=== PATIENT | female | born 1980 | race Caucasian/White ===

== ENCOUNTER 2019-08-29 16:11 | Emergency (ER) | payer OTHER, SELFPAY ==
[2019-08-29 16:16] VITALS: BP 126/83; PULSE 79; RESP 14; TEMP 36.9; O2SAT 98
--- NOTE | 2019-08-29 16:58 | ED.URI ---
HPI - URI/Sore Throat General Chief Complaint: Upper Respiratory Infection Stated Complaint: cough aches Time Seen by Provider: 08/29/19 16:58 Source: patient and RN notes reviewed Mode of arrival: ambulatory Limitations: no limitations History of Present Illness HPI Narrative: 39-year-old female who presents to [facility] care with 6-day duration of low-grade fever, scratchy throat, productive cough of yellow greenish drainage, Patient states that she has some postnasal drainage in the back of her throat, denies any ear pain, no nausea or vomiting or any diarrhea. Patient states some discomfort to her upper chest with cough, is unable to rest due to cough.She states that she did take a flu shot this year. MD elicited complaint: cough, rhinorrhea, nasal congestion and other (scratchy throat) Onset (ago): day(s) (6) Consistency: progressively worsening Severity: moderate Pain scale (0-10): 3 Description of mucous: yellow Able to tolerate fluids by mouth: Yes Exacerbating factors: exertion Relieving factors: nothing Associated symptoms: fever (low grade), rhinorrhea and cough Treatments prior to arrival: other (Mucinex and Nyquil) Related Data Home Medications Medication Instructions Recorded Confirmed cholecalciferol (vitamin D3) 50 2,000 unit PO DAILY 08/09/19 08/29/19 mcg (2,000 unit) capsule Allergies Allergy/AdvReac Type Severity Reaction Status Date / Time clarithromycin Allergy Unknown Vomiting Verified 08/29/19 16:28 Penicillins Allergy Unknown Pruritic Verified 08/29/19 16:28 rash Review of Systems Review of Systems: Narrative: CONSTITUTIONAL: Denies fever, chills, or sweats. EYES: Denies visual changes, redness, or discharge. ENT: positive rhinorrhea, congestion, sore throat, no otalgia. CARDIOVASCULAR: Denies chest pain, palpitations, or edema. RESPIRATORY: positive cough, no dyspnea, SSAO2 98% on room air. GASTROINTESTINAL: Denies abdominal pain, nausea, vomiting, or diarrhea. GENITOURINARY: Denies dysuria or hematuria. SKIN: Denies rash or itching. MUSCULOSKELETAL: Denies back pain, joint pain, or myalgia. NEUROLOGIC: Denies headache, numbness, or weakness. PSYCHIATRIC: Denies anxiety or depression. All systems reviewed & are unremarkable except as noted in HPI and below PMFSH Past Medical History Medical History Anxiety Depression GERD without esophagitis Hx of migraines Vitamin D deficiency Surgical History Surgical History History of cholecystectomy (~2016) History of tubal ligation (~2016) Family History Family History Mother Family history of cardiovascular disease Father Family history of chronic obstructive pulmonary disease Family history of congestive heart failure Other Family history of muscular dystrophy Social History Social History Smoking status: Never smoker Alcohol intake: current Comments At time of signature, agree with nursing past medical, social history. There is no relevant family history pertinent to the presenting complaint Exam Narrative: Exam Narrative: GENERAL: Well-appearing, well-nourished, and in no acute distress. HEAD: Normocephalic, atraumatic. EYES: PERRLA and EOMI. ENT: Nares red,clear rhinorrhea No epistaxis. Mucous membranes moist.TM's normal with good light reflex, throat mildly red no lesions or exudate, no tonsil enlargement NECK: Supple no lymphadenopathy. CHEST: Clear to auscultation. No respiratory distress.cough,SAO2 98% on room air. HEART: Regular rate and rhythm. No murmur heard. Normal peripheral pulses. ABDOMEN: Soft, nontender, nondistended, normal active bowel sounds. EXTREMITIES: Normal range of motion. No edema. SKIN: Warm, dry, no rash. NEURO: No focal deficits. Alert and oriented x3. Course Vital Sign
== END 2019-08-29 17:16 | disposition home or self-care (01) ==
PROVIDERS: Emergency Provider Registered Nurse; PCP Family Medicine
DX: J06.9 Acute upper respiratory infection, unspecified (principal); F41.9 Anxiety disorder, unspecified; F32.9 Major depressive disorder, single episode, unspecified; K21.9 Gastro-esophageal reflux disease without esophagitis; E55.9 Vitamin D deficiency, unspecified
CPT/HCPCS: 99213; G0463

== ENCOUNTER 2021-04-29 10:43 | Outpatient (CLI) | payer OTHER, SELFPAY ==
--- NOTE | ~2021-04-29 | US_ITS ---
EXAMINATION: US pelvic complete w TV DATE: 04/29/2021 11:50 INDICATION: Other specified noninflammatory disorders of the cervix, possible cervical mass TECHNIQUE: Multiple transabdominal and endovaginal sonographic images of the pelvis were obtained. COMPARISON: None. FINDINGS: The uterus measures 11.3 x 3.7 x 5.5 cm. Nabothian cysts are noted in the cervix. No suspic ious sonographically detected cervical mass is identified. The endometrial complex measures 13 mm. Th e right ovary measures 2.7 x 1.7 x 2.6 cm. The left ovary measures 2.8 x 2.7 x 1.8 cm. There is elli l vascular flow in the ovaries. There is a small amount of likely physiologic free fluid in the pelvi s. IMPRESSION: 1. No suspicious sonographically detected cervical mass identified. Reviewed, dictated and finalized at location A.
== END 2021-04-29 10:44 ==
PROVIDERS: Visit Provider Student in an Organized Health Care Education/Training Program
DX: N88.8 Other specified noninflammatory disorders of cervix uteri (principal)
CPT/HCPCS: 76830; 76856

== ENCOUNTER 2021-08-28 01:28 | Day surgery (SDC) | payer OTHER, SELFPAY ==
[2021-08-20 12:29] VITALS: BMI 32.1
--- NOTE | 2021-08-20 12:37 | PC.NURSE ---
Report to the Outpatient Waiting Room, entrance under the green pavilion located off [facility], at time 0800 on date 08/28/21. OR Time: 1000. - You and your visitor will be asked a series of questions to screen for COVID 19 for your protection. - A mask is required within the hospital. One visitor will be allowed to accompany the patient into the hospital. Patients visitor will be instructed to remain with patient at all times or leave the building. We will allow the visitor to come back to the postoperative area when patient is ready. Preoperative COVID Testing Requirements: TO E-MAIL COPY OF CARD No COVID Test needed if: (proof is required; if not received patient will have Rapid Test prior to entry) - Patient has received COVID Vaccine at least 14 days prior to procedure date or - Patient has positive COVID test result within last 90 days of surgery date. COVID Test needed if above criteria is not met Patients may have clear liquids (water, carbonated beverages, clear teas, apple juice) until 3 hours prior to surgery with a maximum of 20 ounces. - No food from midnight until time of surgery Take the following medications with a SIP of water the morning of surgery: BUPROPION Medications to discontinue per physician: VITAMINS/SUPPLEMENTS Date to take last dose: 08/24/21 Please no make-up, nail turkish, hairspray, perfume, deodorant, or body powder the day of surgery. No jewelry (including any body piercings) or valuables the day of surgery, leave them at home. Please take a shower or bath the night before, or the morning of, surgery with an antibacterial soap. Wear comfortable, loose fitting clothing. - Jewelry must be removed prior to entering the operating room. Rings and piercings that are not removed may be cut off. - The hospital will not accept responsibility for valuables. - Please leave all valuables, including medications, at home the day of surgery. If you are going home after surgery, a licensed vending route driver must drive you home. - NO public transportation without another adult. - We recommend that an adult stay with you for 24 hours following discharge. - We also recommend that you do not drive, make important decision, drink alcoholic beverages, or take any drugs that were not prescribed by your health care provider for at least 24 hours after your discharge time. Follow any additional instructions given to you from your surgeon. Telephone instructions given to AZAM CULVER and asked if any additional questions and then verbalized understanding. Patient advised to call surgeon office or pre surgery nurse liaison [phone] if any additional questions.
--- NOTE | 2021-08-27 16:04 | PM.IMHP ---
H&P: HPI History of Present Illness Date/Time: 08/27/21 16:04 Patient is a 41 year old woman with history of worsening menorrhagia and dysmenorrhea. During menstrual cycles, she reports using tampons with pads as back up and has recently started using Depends at night. Menstrual cycles lasts 6 days. She also reports significant cramping. Patient has completed childbearing and is s/p BTL. After discussion regarding management options, patient would like to proceed with an endometrial ablation in an effort to manage symptoms. In general, she reports feeling well today without complaints. Chief Complaint: Menorrhagia Dysmenorrhea Review of Systems Review of Systems: All systems reviewed & are unremarkable except as noted in HPI and below Constitutional: Constitutional: Reports as per HPI, Reports no additional constitutional complaints, Denies chills, Denies fever(s), Denies headache(s) and Denies night sweats Eyes: Eyes: Reports as per HPI and Reports no additional eye complaints ENT: Reports system reviewed and no additional complaints, except as documented, Reports as per HPI, Reports Normal hearing present and Denies headache(s) Cardiovascular: Cardiovascular: Reports as per HPI, Reports no additional cardiovascular complaints, Denies chest pain and Denies dyspnea Respiratory: Respiratory: Reports as per HPI, Reports no additional respiratory complaints, Denies cough and Denies dyspnea Gastrointestinal: Gastrointestinal: Reports as per HPI, Reports no additional gastrointestinal complaints, Denies abdominal pain, Denies change in bowel habits, Denies change in stool character, Denies nausea and Denies vomiting Genitourinary: Genitourinary: Reports no additional female genitourinary complaints, Reports as per HPI, Denies abnormal vaginal bleeding, Denies genital lesions, Denies hot flashes, Denies dyspareunia, Denies pelvic pain, Denies sexual dysfunction, Denies urinary incontinence, Denies vaginal discharge, Denies vaginal dryness and Denies vaginal odor Musculoskeletal: Musculoskeletal: Reports no additional musculoskeletal complaints and Reports as per HPI Integumentary/Breasts: Skin/Breast: Reports system reviewed and no additional complaints, except as docu, Reports as per HPI, Denies breast pain and Denies nipple discharge Neurologic: Reports system reviewed and no additional complaints, except as documented, Reports as per HPI, Reports Normal hearing present and Denies headache(s) Psychiatric: Psychiatric: Reports no additional psychiatric complaints, Reports as per HPI, Denies anxiety and Denies depression Endocrine: Endocrine: Reports no additional endocrine complaints and Reports as per HPI Hematologic/Lymphatic: Hematologic/Lymphatic: Reports no additional hematologic/lymphatic complaints and Reports as per HPI Allergic/Immunologic: Allergic/Immunologic: Reports no additional allergic/immunologic complaints and Reports as per HPI [facility] Past Medical History Medical History Anxiety Depression GERD without esophagitis Migraine Vitamin D deficiency Surgical History Surgical History History of cholecystectomy (~2015) History of tubal ligation (~2015) Family History Family History Mother Family history of cardiovascular disease Father Family history of chronic obstructive pulmonary disease Family history of congestive heart failure Other Family history of muscular dystrophy Social History Social History Smoking status: Never smoker Alcohol intake: current Alcohol use details: RARE Substance use: never Substance use type: does not use Spiritual care concerns: No Meds Home Medications and Allergies Home Medications Medication Instructions Recorded Confirmed Type cholecalciferol
[2021-08-28 08:18] VITALS: BP 118/81; PULSE 86; RESP 18; TEMP 36.2; O2SAT 98
--- NOTE | 2021-08-28 08:36 | P.PNAN_ITS ---
Anes - Initial Pre Proc Eval Procedure: Operation Date: 08/28/21 10:00 Proposed Procedures p Hysteroscopy Dilation and Curettage with Kera Endometrial Ablation with Possible Myosure - Chhaya Tilley MD Date/Time: 08/28/21 08:36 Surgeon: Chhaya Tilley MD Pre Op Diagnosis: Menorrhagia Patient Data Age: 41 Gender: F Height: 1.55 m Weight: 78.7 kg Last Vital Signs Temp 36.2 C L 08/28/21 08:18 Pulse 86 08/28/21 08:18 Resp 18 08/28/21 08:18 BP 118/81 08/28/21 08:18 Pulse Ox 98 08/28/21 08:18 Allergies Allergy/AdvReac Type Severity Reaction Status Date / Time clarithromycin Allergy Unknown Vomiting Verified 08/20/21 12:28 Penicillins Allergy Unknown Pruritic Verified 08/20/21 12:28 rash Home Medications Medication Instructions Recorded Confirmed Type cholecalciferol (vitamin D3) 50 2,000 unit PO DAILY 08/09/19 08/20/21 History mcg (2,000 unit) capsule omeprazole 40 mg capsule,delayed 40 mg PO DAILY #30 cap 03/04/20 08/20/21 Rx release multivitamin with iron 1 tablet PO DAILY 04/22/21 08/20/21 History bupropion HCl 150 mg tablet,12 hr See Rx Instructions .ROUTE BID 07/02/21 08/20/21 Rx sustained-release #180 tablet sumatriptan succinate 100 mg tablet See Rx Instructions PO .COMPLEX #7 07/31/21 08/20/21 Rx tablet Patient hx anesthesia problems: none Family hx anesthesia problems: none Results Review: All pre-operative results and documents have been reviewed as part of the pre-operative evaluation. [facility] Past Medical History Medical History Anxiety Depression GERD without esophagitis Migraine Vitamin D deficiency Surgical History Surgical History History of cholecystectomy (~2015) History of tubal ligation (~2015) Family History Family History Mother Family history of cardiovascular disease Father Family history of chronic obstructive pulmonary disease Family history of congestive heart failure Other Family history of muscular dystrophy Social History Social History Smoking status: Never smoker Alcohol intake: current Alcohol use details: RARE Substance use: never Substance use type: does not use Living arrangements: with family Spiritual care concerns: No Anes - Eval Final PreProcedure Day of Procedure 08/28/21 08:36 Patient weight: obese Heart: regular rate and rhythm Lungs: clear to auscultation Airway: Mallampati scale class II Neurological: alert and oriented Last oral intake: >/= 8 hours ASA classification: III Emergent: no Anesthetic plan: proceed Anesthesia type and monitoring: general GIVS and standard monitoring Results Review: All pre-operative results and documents have been reviewed as part of the pre-operative evaluation. Informed Consent: The patient's anesthetic plan and its attendant risks and benefits were discussed with the patient/family/POA. Questions were solicited and answers provided to the satisfaction of the patient/family/POA.
[2021-08-28] MEDS: LACTATED RINGERS 1,000 ML 30 ML IV CONT (08:41)
[2021-08-28] MEDS: ACETAMINOPHEN 500 MG TABLET 1000 MG PO (08:41)
--- NOTE | 2021-08-28 09:01 | WPDHPUPDATE1 ---
History and Physical Update Update Date/Time: 08/28/21 09:02 History and Physical has been reviewed, including an updated exam of the patient. There are NO changes in the patient's condition. Risks, benefits, and alternatives have been discussed and questions answered. Patient agrees to proceed with procedure.
[2021-08-28 09:56] VITALS: BP 106/62; PULSE 76; RESP 14; O2SAT 92
--- NOTE | 2021-08-28 09:56 | W.PM.PROC2 ---
Procedure Note - Detailed Date of Procedure 08/28/21 Pre-op Diagnosis Menorrhagia Post-op Diagnosis same Procedure Performed Hysteroscopy, dilation and curettage, endometrial ablation with Kera Surgeon Chhaya Tilley MD Anesthesia MAC Findings Large amount of endometrial tissue noted mixed with blood Description of Procedure The patient was taken to the operating room where she self-transferred to the operating room table. She was placed in dorsal supine position. She was repositioned in dorsal lithotomy position with the use of Eric stirrups. Anesthesia was administered and found to be adequate. The patient was prepped and draped in usual sterile fashion. A red rubber catheter was used to drain the bladder of 15 cc of light yellow urine. A bivalve speculum was inserted into the vagina. The cervix was well visualized. The anterior lip of the cervix was grasped with a single-tooth tenaculum. A paracervical block was performed with 1% plain lidocaine. 5 cc of lidocaine was administered on either side for a total of 10 cc. The cervix was serially dilated to accommodate a hysteroscope. The hysteroscope was introduced into the endometrial cavity, however, visualization was extremely limited due to presence of a large amount of endometrial tissue and blood. Tubal ostia were not visualized. The hysteroscope was removed. A medium-size rigid curette was used to perform a curettage. All quadrants of the endometrial cavity were explored. A large amount of tissue was obtained and prepared to be sent to pathology for analysis. The Kera endometrial ablation device was then opened on the sterile field. The appropriate settings were input on the hand-held device and the array was introduced into the endometrial cavity and deployed. The cervical balloon was insufflated. An integrity check was completed and passed by the Kera console. After the integrity check was passed successfully, the ablation procedure started automatically and ran for the preset time of 120 seconds. After completion of the ablation procedure, the array was collapsed and the cervical balloon was desufflated. The device was removed. A moderate amount of bleeding was noted from just inside of the cervical canal. Monsel's was applied. Excellent hemostasis noted. The tenaculum was removed from the anterior lip of the cervix. Moderate bleeding from tenaculum puncture site was noted. This was made hemostatic with a few figure of eight sutures using 3-0 vicryl. Excellent hemostasis was noted. The remainder of the vagina was cleansed and dried and the speculum was removed. The patient was cleansed and dried and taken out of the dorsal lithotomy position. She was awakened from anesthesia without difficulty and transferred to the recovery room in stable condition. The patient tolerated the procedure well. All sponge, lap, and instrument counts were correct at the end of the procedure. Estimated Blood Loss 10 IV Fluids 800 (hysteroscopic fluid: 525cc in/400 cc out) Urine Output 15 Drains No Packing No Pathology yes (endometrial curettings) Complications No immediate complications Condition stable Disposition same day
[2021-08-28 10:25] VITALS: BP 102/64; PULSE 66
[2021-08-28] MEDS: oxyCODONE HCL (*CRX) 5 MG TAB IR PO (10:40)
[2021-08-28 10:55] VITALS: BP 97/65; PULSE 70
[2021-08-28 11:15] VITALS: BP 117/72; PULSE 71
== END 2021-08-28 11:21 | disposition home or self-care (01) ==
PROVIDERS: PCP Family Medicine; Visit Provider Student in an Organized Health Care Education/Training Program
PROC: 0U5B8ZZ Destruction of Endometrium, Via Natural or Artificial Opening Endoscopic (ICD-10-PCS; CPT 58563; principal; 2021-08-28 10:00)
DX: N92.0 Excessive and frequent menstruation with regular cycle (principal); N94.6 Dysmenorrhea, unspecified; N85.01 Benign endometrial hyperplasia; K21.9 Gastro-esophageal reflux disease without esophagitis; E55.9 Vitamin D deficiency, unspecified; F41.8 Other specified anxiety disorders; E66.9 Obesity, unspecified; Z68.32 Body mass index [BMI] 32.0-32.9, adult
CPT/HCPCS: 58563; 88305; A9270; J2250; J2704; J3010; J7030; J7120

== ENCOUNTER 2021-09-21 14:53 | Emergency (ER) | payer OTHER, SELFPAY ==
[2021-09-21 14:58] VITALS: BP 124/82; PULSE 79; RESP 20; TEMP 36.8; O2SAT 99
--- NOTE | 2021-09-21 15:01 | ED.FEMALEGU ---
HPI - Female Genitourinary General Chief complaint: Urogenital-Female Stated complaint: poss uti Time Seen by Provider: 09/21/21 15:00 Source: patient and RN notes reviewed History of Present Illness HPI Narrative: Patient is a 41-year-old female who presents the urgent care with complaints of possible UTI. Patient states that last night she started having burning with urination and urgency. Patient states she is taking Azo last night a morning. Patient denies any fever, nausea, vomiting, travel pain or back pain. Denies of any frequency of UTIs. No other acute complaints. No acute distress noted. Patient aware of the plan of care. Some parts of this dictation were generated by voice recognition software and may contain typographical and/or grammatical inaccuracies. Related Data Home Medications Medication Instructions Recorded Confirmed cholecalciferol (vitamin D3) 50 2,000 unit PO DAILY 08/09/19 08/20/21 mcg (2,000 unit) capsule multivitamin with iron 1 tablet PO DAILY 04/22/21 08/20/21 Allergies Allergy/AdvReac Type Severity Reaction Status Date / Time clarithromycin Allergy Unknown Vomiting Verified 09/21/21 14:54 Penicillins Allergy Unknown Pruritic Verified 09/21/21 14:54 rash Review of Systems Review of Systems: CONSTITUTIONAL: Denies fever, chills, or sweats. EYES: Denies visual changes, redness, or discharge. ENT: Denies rhinorrhea, congestion, sore throat, or otalgia. CARDIOVASCULAR: Denies chest pain, palpitations, or edema. RESPIRATORY: Denies cough or dyspnea. GASTROINTESTINAL: Denies abdominal pain, nausea, vomiting, or diarrhea. GENITOURINARY: Reports of dysuria and urinary frequency SKIN: Denies rash or itching. MUSCULOSKELETAL: Denies back pain, joint pain, or myalgia. NEUROLOGIC: Denies headache, numbness, or weakness. All other systems reviewed are negative, except as documented in HPI. [facility] Past Medical History Medical History (Updated 09/21/21 @ 15:16 by AL Stark) Anxiety Depression GERD without esophagitis Migraine Vitamin D deficiency Surgical History Surgical History History of cholecystectomy (~2015) History of dilation and curettage 08/28/21 History of endometrial ablation 08/28/21 History of hysteroscopy 08/28/21 History of tubal ligation (~2016) Family History Family History Mother Family history of cardiovascular disease Father Family history of chronic obstructive pulmonary disease Family history of congestive heart failure Other Family history of muscular dystrophy Social History Social History Smoking status: Never smoker Alcohol intake: current Alcohol use details: RARE Substance use: never Substance use type: does not use Spiritual care concerns: No Comments At the time of my signature, I reviewed and agree with the nursing past medical, surgical, social, and family history. There is no relevant family history pertinent to the patient complaint. Exam Narrative: GENERAL: This is a well-nourished, well-developed patient, in no apparent distress. HEAD: normocephalic, atraumatic. EYES: PERRL. Sclera clear/white. Vision is grossly intact. EARS: External ears normal NOSE: External nose normal with no obvious nasal discharge, nares without redness, no rhinorrhea. THROAT: Mucous membranes moist NECK: Neck supple CARDIOVASCULAR: Regular rate and rhythm without murmurs, gallops, or rubs. RESPIRATORY: Clear to auscultation. Breath sounds equal bilaterally. No wheezes, rales, or rhonchi. GASTROINTESTINAL: Abdomen soft, non-tender, nondistended. SKIN: warm, intact with no suspicious lesions or rash, good texture and turgor. NEURO: awake, alert, and oriented to person, place and time. There were no obvious focal neurologic abnormalities. EXTREMITIES: No cl
== END 2021-09-21 15:18 | disposition home or self-care (01) ==
PROVIDERS: Emergency Provider Nurse Practitioner Family
DX: R30.0 Dysuria (principal); K21.9 Gastro-esophageal reflux disease without esophagitis; E55.9 Vitamin D deficiency, unspecified; F41.9 Anxiety disorder, unspecified; F32.A Depression, unspecified
CPT/HCPCS: 81003; 87086; 87088; 99213; G0463

== ENCOUNTER 2021-10-20 14:42 | Emergency (ER) | payer OTHER, SELFPAY ==
[2021-10-20 15:02] VITALS: BP 124/88; PULSE 80; RESP 16; TEMP 36.6; O2SAT 100
[2021-10-20 17:19] VITALS: BP 124/78; PULSE 78; RESP 16; O2SAT 98
--- NOTE | 2021-10-20 17:40 | ED.FEMALEGU ---
HPI - Female Genitourinary General Chief complaint: Vaginal Bleeding Stated complaint: vaginal bleeding Time Seen by Provider: 10/20/21 17:34 History of Present Illness HPI Narrative: 41-year-old female presents the emergency room with complaints of heavy vaginal bleeding for 7 days. Patient states in mid August she had a ablation to assist controlling her vaginal bleeding. Patient states since then she has had intermittent light bleeding, until 8 days ago. Patient states that she is passing heavy clots, and is now wearing a depends diaper to help catch the Vach bleeding. Patient is a G5, P4. Patient also complains of some mild lower abdominal cramping, and occasional weakness. Related Data Allergies Allergy/AdvReac Type Severity Reaction Status Date / Time Penicillins Allergy Hives Verified 10/20/21 17:14 Review of Systems Review of Systems: CONSTITUTIONAL: Denies fever, chills, or sweats. EYES: Denies visual changes, redness, or discharge. ENT: Denies rhinorrhea, congestion, sore throat, or otalgia. CARDIOVASCULAR: Denies chest pain, palpitations, or edema. RESPIRATORY: Denies cough or dyspnea. GASTROINTESTINAL: Denies abdominal pain, nausea, vomiting, or diarrhea. GENITOURINARY: Reports vaginal bleeding SKIN: Denies rash or itching. MUSCULOSKELETAL: Denies back pain, joint pain, or myalgia. NEUROLOGIC: Denies headache, numbness, dizziness, or weakness. PSYCHIATRIC: Denies anxiety or depression. Exam Narrative: GENERAL: Well-appearing, well-nourished, and in no acute distress. HEAD: Normocephalic, atraumatic. EYES: PERRLA and EOMI. CHEST: Clear to auscultation. No respiratory distress. No wheezes rales or rhonchi HEART: Regular rate and rhythm. No murmur heard. Normal peripheral pulses. ABDOMEN: Soft, suprapubic tenderness, nondistended, normal active bowel sounds EXTREMITIES: Normal range of motion. No edema. SKIN: Warm, dry, no rash. NEURO: No focal deficits. Alert and oriented x3. PSYCH: Normal mood and affect. Course Course Emergency Course: 1829: Discussed case with VOLCANOLOGY PROFESSOR Dr. Tilley. She states that she will follow-up with patient in clinic on Tuesday. Recommends patient start taking iron supplement. Vital Signs Vital signs: Vital Signs Temperature 36.6 C 10/20/21 15:02 Pulse Rate 80 10/20/21 15:02 Respiratory Rate 16 10/20/21 15:02 Blood Pressure 124/88 10/20/21 15:02 Pulse Oximetry 100 10/20/21 15:02 Temperature 36.6 C 10/20/21 15:02 Pulse Rate 78 10/20/21 17:19 Respiratory Rate 16 10/20/21 17:19 Blood Pressure 124/78 10/20/21 17:19 Pulse Oximetry 98 10/20/21 17:19 MDM - Female Genitourinary MDM Narrative Medical decision making narrative: 41-year-old female presented the emergency room with complaints of heavy vaginal bleeding for 1 week. CBC shows are low hemoglobin at 10.7 and hematocrit of 32.8. Blood pressures have been stable, currently at 124/78. Heart rates have been in the 70s. Patient has remained asymptomatic during her emergency room stay. Medical Records Attestation: I reviewed the patient's medical records. Lab Data Attestation: I reviewed the patient's lab results. Result diagrams: 10/20/21 17:58 10/20/21 17:58 Labs: Lab Results 10/20/21 10/20/21 10/20/21 Range/Units 17:50 17:58 17:58 WBC 8.8 (4.5-10.0) K/mm3 RBC 3.71 L (4.2-5.4) M/mm3 Hgb 10.7 L (12.0-15.0) g/dL Hct 32.8 L (37.0-47.0) % MCV 88.4 (80-100) fl MCH 28.8 (26-34) pg MCHC 32.6 (32-36) g/dl RDW 14.0 (11.5-14.5) % Plt Count 275 (150-375) k/mm3 MPV 10.6 H (7.4-10.4) fl Immature Gran % (Auto) 0.3 (0-0.5) % Neut % (Auto) 65.8 (45.5-73.1) % Lymph % (Auto) 25.0 (18.3-44.2) % Bowman % (Auto) 6.0 (2.6-8.5) % Eos % (Auto) 2.7 (0-4.4) % Baso % (Auto) 0.2 (0.2-1.2) % Lymph # (Auto) 2.21 (0.9-3.2) K/mm3 Bowman # (Auto) 0.5 (0.1-0.6) K/mm3 Eos # (Auto) 0.2 (0-0.3) K/mm3
[2021-10-20 17:56] LABS: Appearance Urine Clear (Clear); Bilirubin Urine Negative (Negative); Blood Urine 2+ (Negative); Color Urine Yellow (Yellow); Glucose Urine UA Negative (Negative); Ketones Urine Negative (Negative); Leukocyte Esterase Ur Negative LEU/UL (Negative); Nitrate Urine Negative (Negative); Protein Urine Negative (Negative); Urobilinogen Urine 0.2 mg/dL (<2.0); pH Urine 6.5 (5.0-9.0)
[2021-10-20 18:04] LABS: Mucus Urine Rare /lpf; RBC Urine 51-75 /hpf (0-2); Squamous Epithelial Cell Urine Rare /hpf (Few); WBC Urine 0-3 /hpf
[2021-10-20 18:05] LABS: Add Urine Microscopic? YES
[2021-10-20 18:05] LABS: Basophils Percent Auto 0.2 % (0.2-1.2); Eosinophils Absolute Auto 0.2 K/mm3 (0-0.3); Eosinophils Percent Auto 2.7 % (0-4.4); Hematocrit 32.8 % (37.0-47.0); Hemoglobin 10.7 g/dL (12.0-15.0); Immature Granulocyte Absolute 0.03 K/mm3 (0.00-0.031); Immature Granulocyte Percent A 0.3 % (0-0.5); Lymphocytes Absolute Auto 2.21 K/mm3 (0.9-3.2); Mean Corpuscular HGB Conc 32.6 g/dl (32-36); Mean Corpuscular Hemoglobin 28.8 pg (26-34); Mean Corpuscular Volume 88.4 fl (80-100); Mean Platelet Volume 10.6 fl (7.4-10.4); Monocytes Absolute Auto 0.5 K/mm3 (0.1-0.6); Neutrophils Absolute Auto 5.8 K/mm3 (1.3-6.7); Neutrophils Percent Auto 65.8 % (45.5-73.1); Platelet Count Result 275 k/mm3 (150-375); Red Blood Count 3.71 M/mm3 (4.2-5.4); White Blood Count 8.8 K/mm3 (4.5-10.0)
[2021-10-20 18:14] LABS: Alanine Aminotransferase 11 U/L (4-35); Albumin Level 3.7 g/dL (3.5-5.1); Alkaline Phosphatase 93 U/L (38-126); Anion Gap 7 mmol/L (8-16); Aspartate Amino Transferase 21 U/L (14-36); Bilirubin,Total 0.2 mg/dL (0.2-1.3); Blood Urea Nitrogen 7 mg/dL (7-17); Calcium 8.4 mg/dL (8.4-10.2); Carbon Dioxide 27 mmol/L (22-30); Chloride 104 mmol/L (98-107); Estimated CRCL calculation 75 ml/min; Estimated Glomerular Filt Rate > 60; Glucose 94 mg/dL (65-110); Potassium 4.1 mmol/L (3.4-5.0); Sodium 138 mmol/L (137-145)
[2021-10-20 18:49] VITALS: BP 123/80; PULSE 75; RESP 18; O2SAT 100
== END 2021-10-20 18:51 | disposition home or self-care (01) ==
PROVIDERS: Emergency Provider Nurse Practitioner Family; PCP Family Medicine
DX: N93.9 Abnormal uterine and vaginal bleeding, unspecified (principal); D64.89 Other specified anemias
CPT/HCPCS: 36415; 80053; 81001; 85025; 99283

== ENCOUNTER 2021-11-18 11:34 | Outpatient (CLI) | payer OTHER, SELFPAY | END 2021-11-18 11:35 | disposition home or self-care (01) | PROVIDERS: PCP Family Medicine; Visit Provider Student in an Organized Health Care Education/Training Program | DX: N93.9 Abnormal uterine and vaginal bleeding, unspecified (principal); Z01.818 Encounter for other preprocedural examination | CPT/HCPCS: 36415; 86850; 86900; 86901 ==

== ENCOUNTER 2021-11-20 13:28 | Observation (INO) | payer OTHER, SELFPAY ==
[2021-11-17 14:58] VITALS: BMI 32.1
--- NOTE | 2021-11-17 15:06 | PC.NURSE ---
Report to the Outpatient Waiting Room, entrance under the green pavilion located off [facility], at time ___06:30____ on date ___[birth year]____. OR Time: ___08:30 . - You and your visitor will be asked a series of questions to screen for COVID 19 for your protection. - Only one visitor is allowed at this time. - The patient visitor is requested to leave or wait in car when not with patient. - A mask is required within the hospital. Patients may have clear liquids (water, carbonated beverages, clear teas, apple juice) until 3 hours prior to surgery with a maximum of 20 ounces. NO DRINKS AFTER 05:30AM 11-20-21 - No food from midnight until time of surgery - Infants may have breast milk until 4 hours before surgery, infant formula 6 hours prior to surgery. - Children will be allowed to drink immediately following surgery. If applicable, please bring a bottle or sippy cup to assist with drinking. Juice, water, soda, and popsicles are readily available. For infants on formula, please bring formula the day of surgery. Pacifiers are allowed. Take the following medications with a SIP of water the morning of surgery: BUPROPRION Medications to discontinue per physician VITAMINS Date to take last yrcp 0-44-17 Please no make-up, nail arabic, hairspray, perfume, deodorant, or body powder the day of surgery. No jewelry (including any body piercings) or valuables the day of surgery, leave them at home. Please take a shower or bath the night before, or the morning of, surgery with an antibacterial soap. Wear comfortable, loose fitting clothing. Children are encouraged to wear pajamas. - Jewelry must be removed prior to entering the operating room. Rings and piercings that are not removed may be cut off. - The hospital will not accept responsibility for valuables. - Please leave all valuables, including medications, at home the day of surgery. If you are going home after surgery, a licensed team otr truck driver must drive you home. - NO public transportation without another adult. - We recommend that an adult stay with you for 24 hours following discharge. - We also recommend that you do not drive, make important decision, drink alcoholic beverages, or take any drugs that were not prescribed by your health care provider for at least 24 hours after your discharge time. Follow any additional instructions given to you from your surgeon. If you or anyone in your household have experienced Covid symptoms in the past week, please notify your surgeon or the nurse liaison at the phone number below for possible testing. Telephone instructions given to ____AZAM CULVER and asked if any additional questions and then verbalized understanding. Patient advised to call surgeon office or pre surgery nurse liaison [phone] if any additional questions.
--- NOTE | 2021-11-19 13:20 | P.PNAN_ITS ---
Anes - Initial Pre Proc Eval Procedure: Operation Date: 11/20/21 08:30 Proposed Procedures p Laparoscopic Assisted Vaginal Hysterectomy with Bilateral Salpingectomy - Chhaya Tilley MD Date/Time: 11/19/21 13:20 Surgeon: Chhaya Tilley MD Pre Op Diagnosis: abn uterine bleeding Patient Data Age: 41 Gender: F Height: 1.55 m Weight: 77 kg Allergies Allergy/AdvReac Type Severity Reaction Status Date / Time clarithromycin Allergy Unknown Vomiting Verified 11/20/21 07:31 Penicillins Allergy Unknown Pruritic Verified 11/20/21 07:31 rash Home Medications Medication Instructions Recorded Confirmed Type cholecalciferol (vitamin D3) 50 2,000 unit PO DAILY 08/09/19 11/20/21 History mcg (2,000 unit) capsule omeprazole 40 mg capsule,delayed 40 mg PO DAILY #30 cap 03/04/20 11/20/21 Rx release multivitamin with iron 1 tablet PO DAILY 04/22/21 11/20/21 History sumatriptan succinate 100 mg PO DAILY PRN 11/17/21 11/20/21 History bupropion HCl 150 mg tablet,12 hr See Rx Instructions .ROUTE BID 11/18/21 11/20/21 Rx sustained-release #180 tablet Patient hx anesthesia problems: none Family hx anesthesia problems: none Results Review: All pre-operative results and documents have been reviewed as part of the pre-operative evaluation. COUNT INCLUDES THE [facility] Past Medical History Medical History Anxiety Depression GERD without esophagitis Idiopathic thrombocytopenic purpura (ITP) Migraine Obesity Vitamin D deficiency Surgical History Surgical History History of cholecystectomy (~2015) History of dilation and curettage 08/28/21 History of endometrial ablation 08/28/21 History of hysteroscopy 08/28/21 History of tubal ligation (~2015) Family History Family History Mother Family history of cardiovascular disease Father Family history of chronic obstructive pulmonary disease Family history of congestive heart failure Other Family history of muscular dystrophy Social History Social History Smoking status: Never smoker Second hand tobacco smoke exposure: Yes Alcohol intake: current Alcohol use details: special occasions Substance use: never Substance use type: does not use Living arrangements: with family Spiritual care concerns: No Anes - Eval Final PreProcedure Day of Procedure 11/19/21 13:20 Patient weight: obese Heart: regular rate and rhythm Lungs: clear to auscultation and normal air movement Airway: Mallampati scale class II Neurological: alert and oriented Last oral intake: >/= 8 hours ASA classification: II Emergent: no Anesthetic plan: proceed Anesthesia type and monitoring: general ETT Results Review: All pre-operative results and documents have been reviewed as part of the pre-operative evaluation. Informed Consent: The patient's anesthetic plan and its attendant risks and benefits were discussed with the patient/family/POA. Questions were solicited and answers provided to the satisfaction of the patient/family/POA.
--- NOTE | 2021-11-19 16:08 | PM.IMHP ---
H&P: HPI History of Present Illness Date/Time: 11/19/21 16:08 Patient is a 41yo woman who presented to gynecology office in 04/2021. During this visit, patient reported recent development of worsening menorrhagia and dysmenorrhea. Symptoms continued to progressively worsen over time and patient underwent an endometrial ablation in 08/2021. After procedure, patient reported intermittent bleeding that became more persistent and heavier over time. She stated that the bleeding seemed to be worse than prior to the ablation procedure. Discussion had with patient regarding management options, inc. hormonal regulation vs. hysterectomy. Patient would like to proceed with hysterectomy for definitive management. Patient also noted to have benign endometrial hyperplasia on pathology results from hysteroscopy/D&C. Although a benign finding, patient was started on progesterone therapy. A hysterectomy would be definitive management for this as well and she would not need to continue progesterone therapy. In general, patient doing well today without complaints. Chief Complaint: Abnormal uterine bleeding Benign endometrial hyperplasia Review of Systems Review of Systems: All systems reviewed & are unremarkable except as noted in HPI and below Constitutional: Constitutional: Reports as per HPI and Reports no additional constitutional complaints Eyes: Eyes: Reports as per HPI and Reports no additional eye complaints ENT: Reports system reviewed and no additional complaints, except as documented and Reports as per HPI Cardiovascular: Cardiovascular: Reports as per HPI and Reports no additional cardiovascular complaints Respiratory: Respiratory: Reports as per HPI and Reports no additional respiratory complaints Gastrointestinal: Gastrointestinal: Reports as per HPI and Reports no additional gastrointestinal complaints Genitourinary: Genitourinary: Reports no additional female genitourinary complaints and Reports as per HPI Musculoskeletal: Musculoskeletal: Reports no additional musculoskeletal complaints and Reports as per HPI Integumentary/Breasts: Skin/Breast: Reports system reviewed and no additional complaints, except as docu and Reports as per HPI Neurologic: Reports system reviewed and no additional complaints, except as documented and Reports as per HPI Psychiatric: Psychiatric: Reports no additional psychiatric complaints and Reports as per HPI Endocrine: Endocrine: Reports no additional endocrine complaints and Reports as per HPI Hematologic/Lymphatic: Hematologic/Lymphatic: Reports no additional hematologic/lymphatic complaints and Reports as per HPI Allergic/Immunologic: Allergic/Immunologic: Reports no additional allergic/immunologic complaints and Reports as per HPI REPLACED BY [facility] Past Medical History Medical History Anxiety Depression GERD without esophagitis Idiopathic thrombocytopenic purpura (ITP) Migraine Obesity Vitamin D deficiency Surgical History Surgical History History of cholecystectomy (~2015) History of dilation and curettage 08/28/21 History of endometrial ablation 08/28/21 History of hysteroscopy 08/28/21 History of tubal ligation (~2015) Family History Family History Mother Family history of cardiovascular disease Father Family history of chronic obstructive pulmonary disease Family history of congestive heart failure Other Family history of muscular dystrophy Social History Social History Smoking status: Never smoker Second hand tobacco smoke exposure: Yes Alcohol intake: current Alcohol use details: special occasions Substance use: never Substance use type: does not use Spiritual care concerns: No Meds Home Medications and Allergies Home Medications Medication Instructions
[2021-11-20] VITALS (10 sets, daily range): BP systolic 101–118; BP diastolic 59–70; PULSE 72–96; RESP 12–18; TEMP 36.2–37.7; O2SAT 88–99
[2021-11-20] MEDS: ACETAMINOPHEN 500 MG TABLET 1000 MG PO (07:40)
[2021-11-20] MEDS: LACTATED RINGERS 1,000 ML 30 ML IV CONT ×2 (07:50→12:32)
[2021-11-20] MEDS: KETOROLAC 15 MG/ML VIAL (*BKC) IV PUSH (07:51)
--- NOTE | 2021-11-20 08:11 | WPDHPUPDATE1 ---
History and Physical Update Update Date/Time: 11/20/21 08:11 History and Physical has been reviewed, including an updated exam of the patient. There are NO changes in the patient's condition. Risks, benefits, and alternatives have been discussed and questions answered. Patient agrees to proceed with procedure.
--- NOTE | 2021-11-20 08:33 | W.PM.PROC2 ---
Procedure Note - Detailed Date of Procedure 11/20/21 Pre-op Diagnosis Abnormal uterine bleeding Post-op Diagnosis Same Procedure Performed Laparoscopic assisted vaginal hysterectomy, bilateral salpingectomy Surgeon Chhaya Tilley MD Frog Shaker Ryan Galdamez Anesthesia General Findings Normal appearing uterus, evidence of prior tubal interruption, multiple paratubal cysts on left side, normal appearing left ovary, remnant of right fallopian tube appears normal, right ovary slightly enlarged with simple cyst noted, otherwise, appears normal; normal appearing liver Description of Procedure The patient was taken to the operating room, where she self-transferred to the operating room table. She was placed in dorsal supine position. General anesthesia was administered without difficulty and found to be adequate. The patient was repositioned in dorsal lithotomy position with the use of Eric stirrups and arms were carefully tucked at her side. She was prepped and draped in usual sterile fashion. A Kearney catheter was inserted using sterile technique. A bivalve speculum was then placed into the vagina. With good visualization of the cervix, the anterior lip of the cervix was grasped with a single-tooth tenaculum. The cervix was then serially dilated to accommodate the insertion of a HUMI uterine manipulator, which was inserted into the uterus for use during the laparoscopic portion of the case. The tenaculum and speculum were removed. Management Developer's gloves were changed. Attention was then turned to the patient's abdomen. A small amount of 0.25% Marcaine was injected in the infraumbilical region. A small infraumbilical incision was made with a scalpel. While tenting the abdominal wall up, a Veress needle was inserted into the abdominal cavity. Intra-abdominal confirmation was made with saline. Carbon dioxide tubing was connected to the Veress needle and insufflation was begun. The abdomen was insufflated to 15 mmHg. Once adequate pneumoperitoneum was achieved, the Veress needle was removed and a 5 mm Optiview trocar was then inserted into the abdominal cavity under direct visualization with the laparoscope. The trocar was removed. The laparoscope was reintroduced into the abdominal cavity through the sheath. For enhanced visualization and completion of the procedure, two additional lateral trocars were placed, one in the left lower quadrant and one in the right lower quadrant. A small amount of 0.25% Marcaine was injected in the right lower quadrant. A skin incision was made with a scalpel and a 5 mm trocar was placed under direct visualization. Similarly, a small amount of 0.25% Marcaine was injected and a skin incision was made in the left lower quadrant. An additional 5 mm trocar was placed under direct visualization. The patient was placed in Trendelenburg position. This allowed good visualization of pelvic structures and a quick survey of the pelvic cavity was completed. The uterus appeared to be grossly normal. Both fallopian tubes showed evidence of prior interruption. Multiple paratubal cysts were visualized on the left side. The left ovary appeared normal. A remnant of the right fallopian tube was visualized and appeared normal. The right ovary, however, appeared slightly enlarged with a simple cyst noted. No gross abnormalities of the visualized portions of the intestines were noted. The anterior and posterior cul-de-sacs also appeared clean without evidence of significant scarring or adhesions. The ureters were well visualized bilaterally. With the use of LigaSure bipolar cautery and transection device, the right fallopian tube remnant was excised and handed off the field. A pinpoint hole was made in the right ovarian cyst to drain and deflate cyst enhancing visualization. Clear cystic fluid was noted. The right round ligament was identified, grasped, cauterized, and transected. Using careful dissection with the LigaSure, the anterior leaf of the broad liga
[2021-11-20] MEDS: ceFAZolin 2 GM/D5W 50 ML 2 GM/50 ML BAG IVPB (09:32)
[2021-11-20] MEDS: BACITRACIN OINTMENT 15 GM TUBE 1 APPLIC TOPICAL (10:28)
[2021-11-20] MEDS: VASOPRESSIN INJ 20 UNITS/ML VIAL XX (10:30)
[2021-11-20] MEDS: BUPIVACAINE HCL 0.25% PF 30 ML VIAL INFILTRATE (12:18)
[2021-11-20] MEDS: fentaNYL CITRATE INJ (*CRX) 100 MCG/2 ML VIAL 25 MCG IV PUSH ×4 (12:56→13:14)
--- NOTE | 2021-11-20 13:35 | PC.NURSE ---
This patient, Yesenia Reyna, was received from PACU per bed on 11/20/21 at 1335. Patient/family oriented to unit policies and routines
[2021-11-20] MEDS: DEXTROSE 5%/0.45% SOD CHL 1,000 ML 125 ML IV CONT (13:58)
[2021-11-20] MEDS: KETOROLAC 30 MG/ML VIAL (*BKC) IV PUSH (13:58)
[2021-11-20] MEDS: MORPHINE SULFATE (*CRX) 2 MG/ML INJ IV PUSH (18:00)
[2021-11-20] MEDS: SIMETHICONE 80 MG TAB.CHEW PO ×2 (19:55→23:58)
[2021-11-20] MEDS: IBUPROFEN 600 MG TABLET PO (19:58)
[2021-11-20] MEDS: HYDROcodone/acetaminophen (*CRX) 10-325 MG TABLET 1 TAB PO ×2 (19:59→23:57)
[2021-11-21] VITALS: BP 104/57; PULSE 87; RESP 18; TEMP 37.1
[2021-11-21 04:30] VITALS: BP 107/51; PULSE 86; RESP 16; TEMP 37.2
[2021-11-21] MEDS: IBUPROFEN 600 MG TABLET PO ×3 (05:03→21:24)
[2021-11-21] MEDS: SIMETHICONE 80 MG TAB.CHEW PO ×5 (05:04→21:24)
[2021-11-21 05:30] LABS: Basophils Percent Auto 0.1 % (0.2-1.2); Eosinophils Percent Auto 0.1 % (0-4.4); Hematocrit 22.4 % (37.0-47.0); Immature Granulocyte Absolute 0.04 K/mm3 (0.00-0.031); Immature Granulocyte Percent A 0.4 % (0-0.5); Lymphocytes Absolute Auto 1.65 K/mm3 (0.9-3.2); Lymphocytes Percent Auto 16.7 % (18.3-44.2); Mean Corpuscular HGB Conc 29.9 g/dl (32-36); Mean Corpuscular Hemoglobin 25.6 pg (26-34); Mean Corpuscular Volume 85.5 fl (80-100); Mean Platelet Volume 11.3 fl (7.4-10.4); Monocytes Absolute Auto 0.8 K/mm3 (0.1-0.6); Monocytes Percent Auto 7.9 % (2.6-8.5); Neutrophils Absolute Auto 7.4 K/mm3 (1.3-6.7); Neutrophils Percent Auto 74.8 % (45.5-73.1); Platelet Count Result 247 k/mm3 (150-375); Red Blood Count 2.62 M/mm3 (4.2-5.4); Red Cell Distribution Width 13.7 % (11.5-14.5); White Blood Count 9.9 K/mm3 (4.5-10.0)
[2021-11-21] MEDS: HYDROcodone/acetaminophen (*CRX) 5-325 MG TABLET 1 TAB PO ×5 (05:33→21:24)
[2021-11-21 06:04] LABS: Hemoglobin 6.7 g/dL (12.0-15.0)
--- NOTE | 2021-11-21 06:04 | PC.NURSE ---
Notified per telephone by lab of critical H/H. Requested that lab confirm result.
[2021-11-21 06:09] LABS: Anisocytosis 1+ (NORMAL); Hypochromasia 1+ (NORMAL); Platelet Estimate Adequate (Adequate)
--- NOTE | 2021-11-21 06:40 | PC.NURSE ---
H/H redrawn to confirm level.
[2021-11-21 06:57] LABS: Hematocrit 22.1 % (37.0-47.0)
[2021-11-21 07:10] LABS: Hemoglobin 6.6 g/dL (12.0-15.0)
--- NOTE | 2021-11-21 07:37 | PM.GYNPNOP ---
LAMINATING MACHINE OFFBEARER - A/P Assessment and plan (1) Status post hysterectomy: Code(s): Z90.710 - Acquired absence of both cervix and uterus Status: Acute Assessment and Plan: POD1. Asymptomatic severe anemia. H/o Chronic anemia. No signs of active bleeding. Adequate urine output. Repeat H/H six hours. Will check CBC in six hours. Monitor for signs/symptoms of hypovolemia. Postoperative Procedures: Procedures Operation Date: 11/20/21 08:30 Actual Procedure Side Surgeon p Laparoscopic Assisted Vaginal Hysterectomy with Bilateral Salpingectomy Bilateral Chhaya Tilley MD Time Spent With Patient Time: Total time spent is greater than 50% in coordination of care (as documented) at patient's floor/unit and/or counseling patient: Time with patient: less than 15 minutes LAMINATING MACHINE OFFBEARER- PN:Subj Post-Op Subjective Date/time seen: 11/21/21 07:37 She denies lightheadedness or dizziness. She has sat up in chair. She has not ambulated. She has tolerated full liquid. She reports adequate pain control. No leg pain. No vag bleeding. Exam Const: General: comfortable and no acute distress Orientation/consciousness: oriented to person, oriented to place and oriented to time Resp: Auscultation: clear to auscultation bilaterally Cardio: Rate: regular rate Rhythm: regular rhythm GI: GI Palp: Yes Soft to palpation Auscultation: normal bowel sounds Other: appropriate tenderness, no rebound or guarding Neuro: General: oriented to person, oriented to place and oriented to time Extrem: General: no calf tenderness Psych: Mental Status: mental status grossly normal LAMINATING MACHINE OFFBEARER - PN: Obj Data Vital Signs Vital Signs: Vital Signs - 24 hr 11/20/21 07:58 11/20/21 12:32 11/20/21 12:45 Temperature 97.1 F L 97.4 F L Pulse Rate 89 79 85 Respiratory Rate 16 12 18 Blood Pressure 106/69 106/59 L 110/65 Pulse Oximetry 98 94 97 11/20/21 13:00 11/20/21 13:10 11/20/21 13:15 Temperature Pulse Rate 86 79 Respiratory Rate 18 12 Blood Pressure 115/65 113/64 Pulse Oximetry 97 88 L 95 11/20/21 13:26 11/20/21 14:00 11/20/21 16:40 Temperature 98.1 F 98.2 F 99.8 F H Pulse Rate 85 72 90 Respiratory Rate 12 18 18 Blood Pressure 118/69 101/62 113/70 Pulse Oximetry 97 99 95 11/20/21 18:50 11/21/21 00:00 11/21/21 04:30 Temperature 98.8 F 98.7 F 98.9 F Pulse Rate 96 87 86 Respiratory Rate 18 18 16 Blood Pressure 103/65 104/57 L 107/51 L Pulse Oximetry Intake/Output Intake/Output: Intake & Output 11/18/21 11/19/21 11/20/21 11/21/21 23:59 23:59 23:59 23:59 Intake Total 3200 1460 Output Total 480 1700 Balance 2720 -240 Meds/Results Medications: Active Medications Generic Name Dose Route Start Last Admin Trade Name Freq PRN Reason Stop Dose Admin Hydrocodone Bitart/Acetaminophen 1 tab 11/20/21 13:28 11/21/21 05:33 Hydrocodone/Acetaminophen (*Crx) 5-325 Mg Tablet PO 1 tab Q3H PRN Administration Pain Rated 5 or Less Hydrocodone Bitart/Acetaminophen 1 tab 11/20/21 13:28 11/20/21 23:57 Hydrocodone/Acetaminophen (*Crx) 10-325 Mg Tablet PO 1 tab Q3H PRN Administration Pain Rated 6 or Greater Acetaminophen 1,000 mg in 100 mls @ 400 mls/hr 11/20/21 16:04 11/20/21 16:57 Ofirmev 1,000 Mg Ivpb IVPB 11/21/21 16:03 Infused Q6H PRN Infusion Pain Rated 4-6 Ibuprofen 600 mg 11/20/21 13:28 11/21/21 05:03 Ibuprofen 600 Mg Tablet PO 600 mg Q6H PRN Administration Cramping Ketorolac Tromethamine 30 mg 11/20/21 13:28 11/20/21 13:58 Ketorolac 30 Mg/Ml Vial (*Bkc) IV PUSH 11/25/21 13:27 30 mg Q6H PRN Administration Pain Rated 4-6 Morphine Sulfate 2 mg 11/20/21 17:51 11/20/21 18:00 Morphine Sulfate (*Crx) 2 Mg/Ml Inj IV PUSH 2 mg Q4H PRN Administration Breakthrough Pain Naloxone HCl 0.1 mg 11/20/21 13:28 Naloxone Hcl 0.4 Mg/Ml Vial IV PUSH Q2M PRN Respiratory rate less than 10 Ondansetron HCl 4 mg 11/20/21 13:28 Ondan
[2021-11-21 08:00] VITALS: BP 120/70; PULSE 83; PULSE 99; RESP 18; TEMP 37.2; O2SAT 100
[2021-11-21 12:00] VITALS: BP 110/64; PULSE 70; RESP 18; TEMP 36.8
[2021-11-21] MEDS: DOCUSATE SODIUM 100 MG CAPSULE PO (13:51)
[2021-11-21] MEDS: FERROUS SULFATE 324 MG TABLET PO (13:51)
[2021-11-21 16:00] VITALS: BP 103/68; PULSE 71; RESP 18; TEMP 37.1; O2SAT 99
[2021-11-21 16:25] LABS: Hematocrit 22.7 % (37.0-47.0)
[2021-11-21 16:32] LABS: Hemoglobin 6.6 g/dL (12.0-15.0)
[2021-11-21 20:00] VITALS: BP 113/72; PULSE 83; RESP 16; TEMP 37; O2SAT 100
[2021-11-22] MEDS: HYDROcodone/acetaminophen (*CRX) 5-325 MG TABLET 1 TAB PO ×3 (01:32→10:37)
[2021-11-22] MEDS: SIMETHICONE 80 MG TAB.CHEW PO ×2 (05:11→10:34)
[2021-11-22] MEDS: IBUPROFEN 600 MG TABLET PO ×2 (05:11→10:38)
--- NOTE | 2021-11-22 08:00 | PC.NURSE ---
PT introductions made and plan of care discussed per post op tinner automatic surgery, pain management, daily care activities and pending discharge to home. PT received such instructions via one to one discussion and demonstrations per shift. PT sole recipient of such instructions and no barriers to learning identified.
[2021-11-22 09:10] VITALS: BP 109/72; PULSE 84; PULSE 94; RESP 18; TEMP 36.7; O2SAT 97
--- NOTE | 2021-11-22 09:19 | PM.GYNPNOP ---
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 She is doing well. Asymptomatic severe anemia. Hemoglobin stable. Discharge home today. Discharge precautions discussed. 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 No lightheadedness or dizziness. She reports positive flatus. Tolerating regular diet. No chest pain or SOB. Subjective: pain is well controlled and patient is tolerating oral intake Review of Systems Review of Systems: All systems reviewed & are unremarkable except as noted in HPI and below Cardiovascular: Cardiovascular: Reports no additional cardiovascular complaints Respiratory: Respiratory: Reports no additional respiratory complaints Gastrointestinal: Gastrointestinal: Reports belching, Denies nausea and Denies vomiting Genitourinary: Genitourinary: Reports no additional female genitourinary complaints Musculoskeletal: Musculoskeletal: Reports no additional musculoskeletal complaints Exam Const: General: comfortable and no acute distress Orientation/consciousness: oriented to person, oriented to place and oriented to time Resp: Effort & Inspection: normal respiratory effort GI: Inspection: normal to inspection GI Palp: Yes Soft to palpation Other: appropriate mild tenderness by incisions Neuro: General: oriented to person, oriented to place and oriented to time Extrem: General: no calf tenderness Psych: Mental Status: mental status grossly normal MA[employer]GER [employer] - PN: Obj Data Vital Signs Vital Signs: Vital Signs - 24 hr 11/21/21 12:00 11/21/21 16:00 11/21/21 20:00 Temperature 98.3 F 98.8 F 98.6 F Pulse Rate 70 71 83 Respiratory Rate 18 18 16 Blood Pressure 110/64 103/68 113/72 Pulse Oximetry 99 100 Intake/Output Intake/Output: Intake & Output 11/19/21 11/20/21 11/21/21 11/22/21 23:59 23:59 23:59 23:59 Intake Total 3200 2610 Output Total 480 2600 Balance 2720 10 Meds/Results Medications: Active Medications Generic Name Dose Route Start Last Admin Trade Name Freq PRN Reason Stop Dose Admin Hydrocodone Bitart/Acetaminophen 1 tab 11/20/21 13:28 11/22/21 05:11 Hydrocodone/Acetaminophen (*Crx) 5-325 Mg Tablet PO 1 tab Q3H PRN Administration Pain Rated 5 or Less Hydrocodone Bitart/Acetaminophen 1 tab 11/20/21 13:28 11/20/21 23:57 Hydrocodone/Acetaminophen (*Crx) 10-325 Mg Tablet PO 1 tab Q3H PRN Administration Pain Rated 6 or Greater Docusate Sodium 100 mg 11/21/21 21:00 11/21/21 13:51 Docusate Sodium 100 Mg Capsule PO 100 mg Q12HR CHANDLER Administration Ferrous Sulfate 324 mg 11/21/21 17:00 11/21/21 13:51 Ferrous Sulfate 324 Mg Tablet PO 324 mg BIDWM CHANDLER Administration Ibuprofen 600 mg 11/20/21 13:28 11/22/21 05:11 Ibuprofen 600 Mg Tablet PO 600 mg Q6H PRN Administration Cramping Ketorolac Tromethamine 30 mg 11/20/21 13:28 11/20/21 13:58 Ketorolac 30 Mg/Ml Vial (*Bkc) IV PUSH 11/25/21 13:27 30 mg Q6H PRN Administration Pain Rated 4-6 Morphine Sulfate 2 mg 11/20/21 17:51 11/20/21 18:00 Morphine Sulfate (*Crx) 2 Mg/Ml Inj IV PUSH 2 mg Q4H PRN Administration Breakthrough Pain Naloxone HCl 0.1 mg 11/20/21 13:28 Naloxone Hcl 0.4 Mg/Ml Vial IV PUSH Q2M PRN Respiratory rate less than 10 Ondansetron HCl 4 mg 11/20/21 13:28 Ondansetron Inj 4 Mg/2 Ml Vial IV PUSH Q6H
[2021-11-22] MEDS: FERROUS SULFATE 324 MG TABLET PO (10:34)
[2021-11-22] MEDS: DOCUSATE SODIUM 100 MG CAPSULE PO (10:37)
--- NOTE | 2021-11-22 11:45 | PC.NURSE ---
PT received discharge instructions per protocol and verbalized understanding of such care.
--- NOTE | 2021-11-22 12:02 | PC.NURSE ---
PT discharged to home wearing abdominal binder accompanied by spouse via wheelchair to waiting car. follow up appts confirmed
--- NOTE | 2021-12-21 08:31 | PM.DS ---
DS: Admitting Diagnosis Discharge Date 11/22/21 Admitting Diagnosis Abnormal uterine bleeding DS: Discharge Diagnosis Discharge Diagnosis (1) Abnormal uterine bleeding: Code(s): N93.9 - Abnormal uterine and vaginal bleeding, unspecified Status: Acute (2) Anemia: Code(s): D64.9 - Anemia, unspecified Status: Acute DS: Summary Hospital Course Reason for hospitalization: planned hysterectomy. Hospital Course: patient was admitted and underwent an uncomplicated laparoscopic vaginal hysterectomy and bilateral salpingectomy. On postop day 1 her hemoglobin was noted to be very low she was asymptomatic. Had not ambulated much that evening before. She was encouraged to ambulate she had another blood count checked in 6 hours to check and make sure no acute bleeding. She had minimal vaginal bleeding. Her follow-up hemoglobin hematocrit was unchanged. She remained asymptomatic with the anemia. She was started on iron therapy. On postop day 2 she was doing well had adequate pain control tolerating regular diet was ambulating and she was discharged home with discharge precautions. She was instructed to continue iron therapy. And to follow up in a week or 2. Status at Discharge Functional status at discharge: independent ambulation Time Spent with Patient Time attestation: Total time spent providing and/or coordinating discharge services: Exam Const: General: comfortable and no acute distress Eyes: General: appearance normal, both eyes and all related structures Resp: Effort & Inspection: normal respiratory effort Auscultation: clear to auscultation bilaterally Cardio: Rate: regular rate Rhythm: regular rhythm GI: Other: Incisions healing well mild tenderness nondistended : Other: perineum dry Extrem: General: normal to inspection and no calf tenderness DS: Data Data Completed and Pending Completed studies during hospitalization: Pending at discharge 11/20/21 10:19 Surgical [PTH] Routine Surgical [PTH] Routine Surgical [PTH] Routine Discharge Plan Discharge Attending physician on discharge: Chhaya Tilley Consulting providers: Truong Vasquez Discharging Clinician: Truong Vasquez Anticipated Discharge Date/Time: 11/22/21 09:22 Patient Disposition: Home, Self-Care Activity: may shower, no straining and no driving Diet: regular Discharge Instructions: No lifting, no straining or bending. Call if having vaginal bleeding like a period. Call for temperature >100.4. Call office to schedule follow up with Dr. Tilley in 1-2 weeks. Stand Alone Forms: General Discharge Information Follow-up/Referrals: Chhaya Tilley MD [Physician] - Discharge Medications: New hydrocodone-acetaminophen 5-325 mg Tablet 1 tablet PO Q3H PRN (Reason: Pain Rated 5 Or Less) Qty: 25 0RF ferrous sulfate 325 mg (65 mg iron) Tablet 324 mg PO BIDWM Qty: 60 0RF Continued cholecalciferol (vitamin D3) 50 mcg (2,000 unit) capsule 2,000 unit PO DAILY multivitamin with iron [Daily Multiple Vitamins/Iron] Tablet 1 tablet PO DAILY sumatriptan succinate 100 mg tablet 100 mg PO DAILY PRN (Reason: Migraine Headache) Rx Instructions: take 1 tab at onset of headache; if no relief may repeat 1 tab in 2hr; max = 2 tabs/24 hrs PO omeprazole 40 mg capsule,delayed release(DR/EC) 40 mg PO DAILY Qty: 30 5RF bupropion HCl 150 mg tablet sustained-release 12 hr See Rx Instructions .ROUTE BID Qty: 180 0RF Dose Instruction: TAKE 1 TABLET BY MOUTH TWICE DAILY Rx Instructions: TAKE 1 TABLET BY MOUTH TWICE DAILY twice a day; Date of admission: 11/21/21 14:43 Primary Care Provider: Mariam Morley Admitting Provider: Chhaya Tilley Attending physician on admission: Chhaya Tilley Condition: Stable
== END 2021-11-22 12:02 | disposition home or self-care (01) ==
LOC: ANHOB2 11-22 09:26 → ANHSURGERY 12-29 10:06 → ANHOB2 12-29 10:06
PROVIDERS: Obstetrics & Gynecology; Admitting Provider Student in an Organized Health Care Education/Training Program; PCP Family Medicine; Visit Provider Student in an Organized Health Care Education/Training Program
PROC: 0UT9FZZ Resection of Uterus, Via Natural or Artificial Opening With Percutaneous Endoscopic Assistance (ICD-10-PCS; CPT 58552; principal; 2021-11-20 08:30)
DX: N93.9 Abnormal uterine and vaginal bleeding, unspecified (principal); N85.01 Benign endometrial hyperplasia; K21.9 Gastro-esophageal reflux disease without esophagitis; E66.9 Obesity, unspecified; Z68.34 Body mass index [BMI] 34.0-34.9, adult; E55.9 Vitamin D deficiency, unspecified; F41.9 Anxiety disorder, unspecified; F32.A Depression, unspecified; Z90.49 Acquired absence of other specified parts of digestive tract; N83.201 Unspecified ovarian cyst, right side; Z77.22 Contact with and (suspected) exposure to environmental tobacco smoke (acute) (chronic); Z79.899 Other long term (current) drug therapy
CPT/HCPCS: 58552; 36415; 85014; 85018; 85025; 86850; 86900; 86901; 88302; 88307; 99199; A9270; C9290; G0378; J0131; J0690; J1100; J1885; J2250; J2270; J2405; J2704; J2710; J3010; J7120

== ENCOUNTER 2022-08-02 10:04 | Outpatient (CLI) | payer OTHER, SELFPAY ==
[2022-08-02 18:37] LABS: Basophils Percent Auto 0.3 % (0.2-1.2); Eosinophils Absolute Auto 0.2 K/mm3 (0-0.3); Eosinophils Percent Auto 1.6 % (0-4.4); Hematocrit 43.3 % (37.0-47.0); Hemoglobin 14.2 g/dL (12.0-15.0); Immature Granulocyte Absolute 0.03 K/mm3 (0.00-0.031); Immature Granulocyte Percent A 0.3 % (0-0.5); Lymphocytes Absolute Auto 3.56 K/mm3 (0.9-3.2); Lymphocytes Percent Auto 36.5 % (18.3-44.2); Mean Corpuscular HGB Conc 32.8 g/dl (32-36); Mean Corpuscular Hemoglobin 29.1 pg (26-34); Mean Corpuscular Volume 88.7 fl (80-100); Mean Platelet Volume 10.8 fl (7.4-10.4); Monocytes Absolute Auto 0.7 K/mm3 (0.1-0.6); Monocytes Percent Auto 7.2 % (2.6-8.5); Neutrophils Absolute Auto 5.3 K/mm3 (1.3-6.7); Neutrophils Percent Auto 54.1 % (45.5-73.1); Platelet Count Result 265 k/mm3 (150-375); Red Blood Count 4.88 M/mm3 (4.2-5.4); Red Cell Distribution Width 14.1 % (11.5-14.5); White Blood Count 9.8 K/mm3 (4.5-10.0)
[2022-08-02 19:01] LABS: LDL Cholesterol Direct 77 mg/dL
[2022-08-02 19:23] LABS: Alanine Aminotransferase 15 U/L (6-35); Albumin Level 3.7 g/dL (3.5-5.1); Alkaline Phosphatase 84 U/L (38-126); Anion Gap 7 mmol/L (8-16); Aspartate Amino Transferase 23 U/L (14-36); Bilirubin,Total 0.4 mg/dL (0.2-1.3); Blood Urea Nitrogen 15 mg/dL (7-17); Calcium 8.7 mg/dL (8.4-10.2); Carbon Dioxide 32 mmol/L (22-30); Chloride 102 mmol/L (98-107); Cholesterol 148 mg/dL (0-200); Estimated Glomerular Filt Rate > 60; Glucose 57 mg/dL (65-110); HDL Direct 42 mg/dL; Potassium 3.9 mmol/L (3.4-5.0); Sodium 141 mmol/L (137-145); Triglycerides 135 mg/dL (<150)
[2022-08-02 20:30] LABS: Iron 55 ug/dL (37-170)
[2022-08-02 20:37] LABS: Percent Iron Saturation 18 % (20-50)
[2022-08-02 21:08] LABS: Vitamin D 25 Hydroxy 53.4 ng/mL
== END 2022-08-02 10:05 | disposition home or self-care (01) ==
LOC: ANHGOSHLAB 10:05
PROVIDERS: PCP Family Medicine; Visit Provider Nurse Practitioner
DX: Z13.6 Encounter for screening for cardiovascular disorders (principal); D64.9 Anemia, unspecified; E55.9 Vitamin D deficiency, unspecified; R53.83 Other fatigue; E53.8 Deficiency of other specified B group vitamins
CPT/HCPCS: 36415; 80053; 80061; 82306; 82607; 82728; 83540; 83550; 84443; 85025

== ENCOUNTER 2022-09-26 17:47 | Emergency (ER) | payer OTHER, SELFPAY ==
[2022-09-26 17:58] VITALS: BP 129/81; PULSE 83; RESP 20; TEMP 36.8; O2SAT 98
--- NOTE | 2022-09-26 18:57 | ED.GENADULT ---
HPI - General Adult General Chief complaint: Skin/Abscess/Foreign Body Stated complaint: chemical burn on face Source: patient Mode of arrival: ambulatory Limitations: no limitations History of Present Illness HPI narrative: Patient presents for evaluation of redness to the right side of her face. She works as a [employer] at [employer]. She was at work this afternoon. Her hand came in contact with some industrial strength laundry detergent. Unbeknownst to her she then touched the right side of her face. She has experienced redness and discomfort since that time. The solution did not get into her eye. It did not come in contact with other areas of her skin. She presents with redness to the anterior aspect of her neck as well. When asked about that she states that the redness is likely 2/2 anxiety, for which she takes wellbutrin and hydroxyzine at home. Related Data Home Medications Medication Instructions Recorded Confirmed cholecalciferol (vitamin D3) 50 2,000 unit PO DAILY 08/09/19 09/26/22 mcg (2,000 unit) capsule Allergies Allergy/AdvReac Type Severity Reaction Status Date / Time clarithromycin Allergy Unknown Vomiting Verified 09/26/22 18:03 Penicillins Allergy Unknown Pruritic Verified 09/26/22 18:03 rash Review of Systems Review of Systems: CONSTITUTIONAL: Denies fever, chills, or sweats. EYES: Denies visual changes, redness, or discharge. ENT: Denies rhinorrhea, congestion, sore throat, or otalgia. CARDIOVASCULAR: Denies chest pain, palpitations, or edema. RESPIRATORY: Denies cough or dyspnea. GASTROINTESTINAL: Denies abdominal pain, nausea, vomiting, or diarrhea. GENITOURINARY: Denies dysuria or hematuria. SKIN: Reports redness and discomfort to the right side of her face MUSCULOSKELETAL: Denies back pain, joint pain, or myalgia. NEUROLOGIC: Denies headache, numbness, dizziness, or weakness. PSYCHIATRIC: Denies anxiety or depression. [facility] Past Medical History Medical History Anxiety Depression GERD without esophagitis Idiopathic thrombocytopenic purpura (ITP) Migraine Obesity Vitamin D deficiency Surgical History Surgical History H/O: hysterectomy 11/20/2021 History of cholecystectomy (~2015) History of dilation and curettage 08/28/21 History of endometrial ablation 08/28/21 History of hysteroscopy 08/28/21 History of tubal ligation (~2015) Status post hysterectomy Family History Family History Mother Family history of cardiovascular disease Father Family history of chronic obstructive pulmonary disease Family history of congestive heart failure Other Family history of muscular dystrophy Social History Social History Social History: Caffeine-daily Smoking status: Never smoker Second hand tobacco smoke exposure: Yes Alcohol intake: current Alcohol use details: special occasions Substance use: never Substance use type: does not use Lack of Transportation: No Lack of Food: Never True Current Housing: I Have Housing Concerned About Future Housing: No Difficulty Paying Gas/Electric Bills: No Difficulty Paying for Meds: No Currently Unemployed: No Education: Trade/Vocational Certificate Difficulty w/ Childcare or Family Care: No Living arrangements: with family Spiritual care concerns: No Exam Narrative: GENERAL: Well-appearing, well-nourished, and in no acute distress. HEAD: Normocephalic, atraumatic. EYES: PERRLA and EOMI. ENT: Nares clear, no rhinorrhea or epistaxis. Mucous membranes moist. Oropharynx without tonsillar hypertrophy exudate or other lesions. Bilateral TMs pearly lin nonbulging NECK: Supple. No adenopathy or masses. No carotid bruits or JVD CHEST: Clear to auscultation. No respir
== END 2022-09-26 18:59 | disposition home or self-care (01) ==
PROVIDERS: Emergency Provider Nurse Practitioner; PCP Nurse Practitioner
DX: T20.10XA Burn of first degree of head, face, and neck, unspecified site, initial encounter (principal); T31.0 Burns involving less than 10% of body surface; X08.8XXA Exposure to other specified smoke, fire and flames, initial encounter; Y99.0 Civilian activity done for income or pay
CPT/HCPCS: 99213; G0463

== ENCOUNTER 2023-01-06 11:24 | Outpatient (CLI) | payer OTHER, SELFPAY ==
[2023-01-06 19:34] LABS: Magnesium 2.1 mg/dL (1.6-2.3)
[2023-01-06 19:36] LABS: Basophils Absolute Auto 0.1 K/mm3 (0.0-0.1); Basophils Percent Auto 0.6 % (0.2-1.2); Eosinophils Absolute Auto 0.3 K/mm3 (0-0.3); Eosinophils Percent Auto 2.7 % (0-4.4); Hematocrit 41.9 % (37.0-47.0); Immature Granulocyte Absolute 0.04 K/mm3 (0.00-0.031); Immature Granulocyte Percent A 0.4 % (0-0.5); Lymphocytes Absolute Auto 2.87 K/mm3 (0.9-3.2); Lymphocytes Percent Auto 26.5 % (18.3-44.2); Mean Corpuscular HGB Conc 33.4 g/dl (32-36); Mean Corpuscular Hemoglobin 29.2 pg (26-34); Mean Corpuscular Volume 87.5 fl (80-100); Mean Platelet Volume 11.3 fl (7.4-10.4); Monocytes Absolute Auto 0.7 K/mm3 (0.1-0.6); Monocytes Percent Auto 6.2 % (2.6-8.5); Neutrophils Absolute Auto 6.9 K/mm3 (1.3-6.7); Neutrophils Percent Auto 63.6 % (45.5-73.1); Platelet Count Result 293 k/mm3 (150-375); Red Blood Count 4.79 M/mm3 (4.2-5.4); Red Cell Distribution Width 13.5 % (11.5-14.5); White Blood Count 10.9 K/mm3 (4.5-10.0)
== END 2023-01-06 11:25 | disposition home or self-care (01) ==
LOC: ANHGOSHLAB 11:25
PROVIDERS: PCP Family Medicine; Visit Provider Nurse Practitioner Family
DX: I45.9 Conduction disorder, unspecified (principal); D64.9 Anemia, unspecified
CPT/HCPCS: 36415; 83735; 85025

== ENCOUNTER 2024-02-06 16:46 | Emergency (ER) | payer OTHER, SELFPAY ==
[2024-02-06 16:54] VITALS: BP 113/83; PULSE 75; RESP 20; TEMP 36.9; O2SAT 98
--- NOTE | 2024-02-06 17:11 | ED.URI ---
HPI - URI/Sore Throat General Chief Complaint: Upper Respiratory Infection Stated Complaint: throat Time Seen by Provider: 02/06/24 17:11 Source: patient Mode of arrival: ambulatory Limitations: no limitations History of Present Illness HPI Narrative: 43-year-old female presents with complaint of sore throat, fatigue, body aches, sinus pressure for 2 days. Afebrile. Taking Benadryl and ibuprofen to treat symptoms. All systems reviewed and negative except as noted above. Related Data Home Medications Medication Instructions Recorded Confirmed cholecalciferol (vitamin D3) 50 2,000 unit PO DAILY 08/09/19 02/06/24 mcg (2,000 unit) capsule Allergies Allergy/AdvReac Type Severity Reaction Status Date / Time clarithromycin Allergy Unknown Vomiting Verified 02/06/24 17:20 Penicillins Allergy Unknown Pruritic Verified 02/06/24 17:20 rash Review of Systems Review of Systems: CONSTITUTIONAL: Denies fever, chills, or sweats. Reports fatigue. EYES: Denies visual changes, redness, or discharge. ENT: Denies rhinorrhea. Reports congestion, sore throat. Denies otalgia. CARDIOVASCULAR: Denies chest pain, palpitations, or edema. RESPIRATORY: Denies cough or dyspnea. GASTROINTESTINAL: Denies abdominal pain, nausea, vomiting, or diarrhea. GENITOURINARY: Denies dysuria or hematuria. SKIN: Denies rash or itching. MUSCULOSKELETAL: Denies back pain, joint pain. Reports myalgia. NEUROLOGIC: Denies headache, numbness, or weakness. PSYCHIATRIC: Denies anxiety or depression. All other systems reviewed are negative, except as documented in HPI. [facility] Past Medical History Medical History Anxiety Depression GERD without esophagitis Idiopathic thrombocytopenic purpura (ITP) Migraine Obesity Skipped heart beats Vitamin D deficiency Surgical History Surgical History H/O: hysterectomy 11/20/2021 History of cholecystectomy (~2015) History of dilation and curettage 08/28/21 History of endometrial ablation 08/28/21 History of hysteroscopy 08/28/21 History of tubal ligation (~2015) Status post hysterectomy Family History Family History Mother Family history of cardiovascular disease Father Family history of chronic obstructive pulmonary disease Family history of congestive heart failure Other Family history of muscular dystrophy Social History Social History Social History: Caffeine-daily Smoking status: Never smoker Second hand tobacco smoke exposure: Yes Alcohol intake: current Alcohol use details: special occasions Substance use: never Substance use type: does not use Lack of Transportation: No Lack of Food: Never True Current Housing: I Have Housing Concerned About Future Housing: No Difficulty Paying Gas/Electric Bills: No Difficulty Paying for Meds: No Currently Unemployed: No Education: Trade/Vocational Certificate Difficulty w/ Childcare or Family Care: No Living arrangements: with family Spiritual care concerns: No Comments At time of signature, agree with nursing past medical, surgical, social and family history. There is no relevant family history pertinent to the presenting complaint. Exam Narrative: GENERAL: This is a well-nourished, well-developed patient, patient ill-appearing but no acute distress. HEAD: normocephalic, atraumatic. EYES: PERRL. Sclera clear/white. Vision is grossly intact. EARS: External ears normal, auditory canals clear and without drainage, TMs normal without perforation. Hearing grossly intact. NOSE: External nose normal with no obvious nasal discharge, nares without redness, no rhinorrhea. THROAT: Mucous membranes moist, mild erythema postnasal drainage NECK: Neck supple, non-tender without lymphadenopathy, masses or thyromegaly
[2024-02-06 17:23] LABS: EDSTREPNEGPOS1 Presumptive Negative
== END 2024-02-06 17:30 | disposition home or self-care (01) ==
PROVIDERS: Emergency Provider Nurse Practitioner Family; PCP Family Medicine
DX: J06.9 Acute upper respiratory infection, unspecified (principal); Z20.822 Contact with and (suspected) exposure to COVID-19; K21.9 Gastro-esophageal reflux disease without esophagitis; D69.3 Immune thrombocytopenic purpura; E66.9 Obesity, unspecified; Z68.32 Body mass index [BMI] 32.0-32.9, adult; E55.9 Vitamin D deficiency, unspecified
CPT/HCPCS: 87081; 87426; 87880; 99213; G0463

== ENCOUNTER 2024-09-06 11:37 | Outpatient (CLI) | payer OTHER, SELFPAY ==
[2024-09-06 12:38] LABS: Basophils Percent Auto 0.3 % (0.2-1.2); Eosinophils Absolute Auto 0.2 K/mm3 (0-0.3); Eosinophils Percent Auto 2.1 % (0-4.4); Hematocrit 40.1 % (37.0-47.0); Hemoglobin 13.6 g/dL (12.0-15.0); Immature Granulocyte Absolute 0.04 K/mm3 (0.00-0.031); Immature Granulocyte Percent A 0.4 % (0-0.5); Lymphocytes Absolute Auto 2.55 K/mm3 (0.9-3.2); Lymphocytes Percent Auto 27.4 % (18.3-44.2); Mean Corpuscular HGB Conc 33.9 g/dl (32-36); Mean Corpuscular Hemoglobin 29.7 pg (26-34); Mean Corpuscular Volume 87.6 fl (80-100); Mean Platelet Volume 10.7 fl (7.4-10.4); Monocytes Absolute Auto 0.6 K/mm3 (0.1-0.6); Monocytes Percent Auto 6.4 % (2.6-8.5); Neutrophils Absolute Auto 5.9 K/mm3 (1.3-6.7); Neutrophils Percent Auto 63.4 % (45.5-73.1); Platelet Count Result 301 k/mm3 (150-375); Red Blood Count 4.58 M/mm3 (4.2-5.4); Red Cell Distribution Width 12.7 % (11.5-14.5); White Blood Count 9.3 K/mm3 (4.5-10.0)
--- OUTSIDE RECORDS SUMMARY | 2024-09-06 13:13 | XMS_ITS | Referral Summary ---
Author Organization [facility] Address [address] [place] [address] Care Team Providers Care Offal Worker Name Role Phone Caitlin Morley MD Primary Care Provider Allergies Active Allergy Reactions Criticality Noted Date Comments Clarithromycin Nausea only,Vomiting Low Reaction: Nausea, Vomiting, Penicillins Hives,Rash Reaction: Hives, Skin Rash, Medications acetaminophen-aspi rin-caffeine (EXCEDRIN EXTRA STRENGTH) 250-250-65 mg per tablet 0 0 12/25/19 16 Active acetaminophen (TYLENOL) 325 mg tablet 325 mg. 0 0 12/25/19 16 Active multivitamin tablet tablet 0 0 12/25/19 16 Active Additional Information Patient not taking.Reported on 04/10/2023 buPROPion SR (WELLBUTRIN SR) 150 mg 12 hr tablet take 1 tablet (150MG) by oral route 2 times every day 180 5 04/09/20 11 Active Additional Information Patient not taking.Reported on 04/10/2023 busPIRone (BUSPAR) 10 mg tabletIndications: Generalized Anxiety Disorder Take 1 tablet (10 mg total) by mouth 3 (three) times a day. 90 tablet 11 06/22/20 17 Active SUMAtriptan (IMITREX) 100 mg tablet Take 1 tablet (100 mg total) by mouth once as needed for migraine for up to 1 dose. 9 tablet 2 06/22/20 17 Active ibuprofen (ADVIL,MOTRIN) 800 mg tablet Take 1 tablet (800 mg total) by mouth 3 (three) times a day. 21 tablet 10/26/19 18 Active Additional Information Patient not taking.Reported on 04/10/2023 norgestimate-ethin yl estradiol (ORTHO TRI-CYCLEN LO, 28,) 0.18/0.215/0.25 mg-25 mcg per tablet daily. Active omeprazole (PriLOSEC) 10 mg capsule Prilosec Active norgestimate-ethin yl estradiol (SPRINTEC, 28,) 0.25-35 mg-mcg per tablet daily. 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 Overview (10/07/2016): ITP Depression 11/17/2013 Overview (10/08/2016): Depression Seizure 11/17/2013 Overview (10/08/2016): Seizure Idiopathic thrombocytopenic purpura 11/17/2013 Overview (10/08/2016): ITP (idiopathic thrombocytopenic purpura) Immunizations Immunization Administration Dates Next Due Influenza, Unspecified 06/13/2017 Tdap 11/07/2008 Social History Tobacco Use Types Packs/Day Years Used Date Smoking Tobacco: Never Smokeless Tobacco: Never Alcohol Use Standard Drinks/Week Comments No 0 (1 standard drink = 0.6 oz pur e alcohol) Personal Safety Answer Date Recorded Have you ever been in or are you currently in a harmful physical or emotional relationship or is someone making you feel afraid or unsafe? 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 Gender Identity Not on file Sexual Orientation Not on file Last Filed Vital Signs Vital Sign Reading Time Taken Comments Blood Pressure 134/80 04/10/2023 12:00 PM CDT Pulse 73 04/10/2023 12:00 PM CDT Temperature 36.6 C (97.9 F) 04/10/2023 12:00 PM CDT Respiratory Rate 16 04/10/2023 12:00 PM CDT Oxygen Saturation 99% 04/10/2023 12:00 PM CDT Inhaled Oxygen Concentration - - Weight 77.1 kg (170 lb) 04/10/2023 12:00 PM CDT Height 154.9 cm (5' 1 ) 04/10/2023 12:00 PM CDT Body Mass Index 32.12 04/10/2023 12:00 PM CDT Plan of Treatment Not on file Insurance [facility] Care Teams Offal Worker Relationship Specialty Start Date End Date Caitlin Morley MD PCP - General 04/20/21
--- OUTSIDE RECORDS SUMMARY | 2024-09-06 13:13 | XMS_ITS | Clinical Summary ---
Author Organization [facility] Address [address] [place] [address] Care Team Providers Care Or Rn Name Role Phone Caitlin Morley MD Primary [...] Next Due Influenza, Unspecified 06/13/2017 Tdap 11/07/2008 Surgical History Surgery Date Site/Laterality Comments TUBAL LIGATION Bilateral tubal ligation TUBAL LIGATION tubal OTHER SURGICAL HISTORY benign bone marrow biopsy LAPAROSCOPIC CHOLECYSTECTOMY 07/04/2015 - 07/03/2016 Cholecystectomy, laparoscopic CHOLECYSTECTOMY Medical History Medical History Date Comments Hx Other Medical 12/1998 immune thromboc ytopenic purpura Hx Other Medical 09/2015 possible gallbl adder Hx Other Medical migraine headac hes; Comments: GDS 12/25/2015 - Hx Other Medical gastric ulcer; Comments: GDS 12/25/2015 - Family History Medical History Relation Name Comments COPD Father COPD; Coronary artery disease Father Juan nary artery disease; Heart disease Father Heart disease; Hypertension Father Hypertension; Prostate cancer Father Cancer, pros rkuger; Heart disease Mother Heart disease; Other Mother Muscular dystro phy; Skin cancer Mother Cancer -skin; / Cancer, skin; Alcohol abuse Mother's Brother Alcoholism ; Breast cancer Mother's Sister Cancer -philip ast; Relation Name Status Comments Father Mother Mother's Brother Mother's Sister Social History Tobacco Use Types Packs/Day Years [...] on file 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 Gender Identity Not on file Sexual Orientation Not on file Obstetrics History Last Filed Vital Signs Vital Sign Reading [...] 04/10/2023 12:00 PM CDT Plan of Treatment Health Maintenance Due Date Last Done Comments Breast Cancer Screening-Mammogram 1979 Colon Cancer Screening-Colonoscopy 1979 Hepatitis C Screening 1979 Hepatitis B Screening 1997 Regular Well Visit/Exam 18-64 1997 Depression Screening 06/22/2018 06/22/2017 DTaP/Tdap/Td Vaccine (2 - Td or Tdap) 11/07/2018 11/07/2008, 02/10/1994 Influenza Vaccine (#1) 2024 06/13/2017 HPV Vaccines Aged Out No longer eligi ble based on patient's age to complete this topic Pneumococcal vaccine <65 Aged Out No longer eligible based on patient's age to complete this topic Insurance [id number] [facility] Care Teams Or Rn Relationship Specialty Start Date End Date Caitlin Morley MD [facility] - General 04/20/21
--- OUTSIDE RECORDS SUMMARY | 2024-09-06 13:13 | XMS_ITS | Clinical Summary ---
Author Organization [facility] Address [address] [place] [address] Phone Care Team Providers Care Air Intercept Controller Supervisor Name Role Phone Provider, None Primary Care Provider Unavailabl e Allergies Active Allergy Reactions Criticality Noted Date Comments Clarithromycin Vomiting 09/10/2015 Penicillins Hives 09/10/2015 Medications metroNIDAZOLE (FLAGYL) 500 MG Tablet Take 1 Tab by mouth 3 times daily. 30 Tab 0 09/10/2015 Active ondansetron (ZOFRAN) 4 MG Tablet Take 1 Tab by mouth every 8 hours as needed for Nausea. 10 Tab 0 09/10/2015 Active Social History Tobacco Use Types Packs/Day Years Used Date Smoking Tobacco: Never Alcohol Use Standard Drinks/Week Comments No 0 (1 standard drink = 0.6 oz pur e alcohol) Comments No Sex and Gender Information Value Date Recorded Sex Assigned at Not on file Legal Sex Female 11:58 PM CDT Gender Identity Not on file Sexual Orientation Not on file Last Filed Vital Signs Vital Sign Reading Time Taken Comments Blood Pressure 108/76 09/10/2015 1:05 PM [employer]RE SERVICES PLUMBER Pulse 83 09/10/2015 1:05 PM [employer] Temperature 36.8 C (98.3 F) 09/10/2015 1:05 PM [employer] SERVICES PLUMBER Respiratory Rate 18 09/10/2015 1:05 PM [employer] SERVICES PLUMBER Oxygen Saturation 98% 09/10/2015 1:05 PM [employer]UMBER Inhaled Oxygen Concentration - - Weight 68 kg (150 lb) 09/10/2015 1:05 PM [employer] SERVICES PLUMBER Height 43.2 cm (1' 5 ) 09/10/2015 1:05 PM FI[employer] SERVICES PLUMBER Body Mass Index 364.92 09/10/2015 1:05 PM FIRE SERVICES PLUMBER Plan of Treatment Not on file Insurance [employer] Care Teams Air Intercept Controller Supervisor Relationship Specialty Start Date End Date Provider, None [place] PCP - General 09/10/15
--- OUTSIDE RECORDS SUMMARY | 2024-09-06 13:13 | XMS_ITS | Data Portability ---
Author Organization [facility] Address [address] [place] [address] Assessment No assessment recorded. Plan of Treatment Reminders Order Date Submit Date Provider Last Modified By Organization Details Last Modified Time Details Appointments None recorded. Lab SARS CoV 2 RNA (COVID-19), QL, hydrant setter-PCR, respiratory specimen - [place] 345 2019 020 [facility] (Lab), [address] [place], [address], 0 18:55:51 SARS CoV 2 RNA (COVID-19), QL, hydrant setter-PCR, respiratory specimen - [place] location please-2019 020 [facility] (Lab), [address] [place], [address], 0 14:38:10 SARS CoV 2 RNA (COVID-19), QL, hydrant setter-PCR, respiratory specimen - [place] location please-2019 020 [facility] (Lab), [address] [place], [address], 0 22:53:33 SARS CoV 2 RNA (COVID-19), QL, hydrant setter-PCR, respiratory specimen - [place] location please-2019 020 njeffries 9 [facility] (Lab), [address] [place], [address], 0 14:25:35 SARS CoV 2 RNA (COVID-19), QL, hydrant setter-PCR, respiratory specimen - [place] location please-1420 2019 020 BILL [facility] (Lab), [address] [facility], [place], [address], 0 23:40:39 Referral None recorded. Procedures None recorded. Surgeries None recorded. Imaging None recorded. Medication Orders None recorded. Patient TargetsNo targets recorded. Patient Instructions Encounter Date Encounter Id Patient Instructions Last Modified By Organization Details Last Modified Time 01/18/2020 [id number] Reviewed the following recommendations: -Stay home and separate from others as much as possible. -Monitor your symptoms and seek medical attention for trouble breathing, persistent chest pain, confusion, or bluish lips or face. -Wear a mask if you must be around other people. -Wash your hands often for 20 seconds with soap and water and clean high-touch surfaces daily -You may discontinue home isolation if your symptoms are improving, it has been 10 days since symptoms started, and you have been fever free for at least 3 days. Not available 01/18/2020 14:25:31 01/21/2020 [id number] Reviewed the following recommendations: -Stay home and separate from others as much as possible. -Monitor your symptoms and seek medical attention for trouble breathing, persistent chest pain, confusion, or bluish lips or face. -Wear a mask if you must be around other people. -Wash your hands often for 20 seconds with soap and water and clean high-touch surfaces daily -You may discontinue home isolation if your symptoms are improving and it has been 10 days since symptoms started. [email or web address] Not available 01/21/2020 14:30:40 01/28/2020 [id number] Reviewed the following recommendations: -Stay home and separate from others as much as possible. -Monitor your symptoms and seek medical attention for trouble breathing, persistent chest pain, confusion, or bluish lips or face. -Wear a mask if you must be around other people. -Wash your hands often for 20 seconds with soap and water and clean high-touch surfaces daily -You may discontinue home isolation if your symptoms are improving and it has been 10 days since symptoms started. [email or web address] Not available 01/28/2020 10:12:17 02/04/2020 [id number] Reviewed the following recommendations: -Stay home and separate from others as much as possible. -Monitor your symptoms and seek medical attention for trouble breathing, persistent chest pain, confusion, or bluish lips or face. -Wear a mask if you must be around other people. -Wash your hands often for 20 seconds with soap and water and clean high-touch surfaces daily -You may discontinue home isolation if your symptoms are improving, it has been 10 days since symptoms started, and you have been fever free for at least 3 days. Not available 02/04/2020 16:08:00 Reason for Referral None Reported. Results Created Date Observation Date Name Description Value Unit Range Abnormal Flag Note LastModifiedBy Organization Detail LastModifiedTime 01/07/2001/07/2020 SARS CoV 2 RNA (COVI D-19) , QL, hydrant setter-P CR, respi rator y speci men sars - cov - 2 PCR NEGATI VE mL Not Available [facility] (Lab) [address] [place], [address], 01/08/2020 23:40:38 01/07/2001/07/2020 SARS CoV 2 RNA (COVI D-19) , QL, hydrant setter-P CR, respi rator y speci men covidcom1 COMME NTS: This assay is desig mitzy to detec t the RdRp and N genes of SARS- CoV-2 using nucle ic acid ampli ficat ion. A negat robert resul t does not precl ude the possi bilit y of 2019- nCoV infec tion since the adequ acy of sampl e colle ction and/o r low viral burde n may resul t in the prese nce of viral nucle ic acids level s below the chet tical sensi tivit y of this test metho d. Not Available [facility] (Lab) [address] [facility], [place], [address], 01/08/2020 23:40:38 01/07/2001/07/2020 SARS CoV 2 RNA (COVI D-19) , QL, hydrant setter-P CR, respi rator y speci men covidcom2 Posit robert resul ts are indic ative of the prese nce of SARS- CoV-2 RNA and do not rule out bacte rial infec tion or co-in fecti on with other virus es. Not Available [facility] (Lab) [address] [place], [address], 01/08/2020 23:40:38 01/07/20 20 01/07/2020 SARS CoV 2 RNA (COVI D-19) , QL, hydrant setter-P CR, respi rator y speci men covidcom3 Test resul ts ирина d be used along with other clini wang obser vatio ns, patie nt histo ry, epide miolo gical infor matio n and labor atory data in alexi g the diagn osis. Not Available [facility] (Lab) [address], [place], [address], 01/08/2020 23:40:38 01/07/20 20 01/07/2020 SARS CoV 2 RNA (COVI D-19) , QL, hydrant setter-P CR, respi rator y speci men covidcom4 This test has recei ami FDA Emerg ency Use Autho rizat ion and has been verif ied by [facility] . This test is only autho rized for the durat ion of the decla ratio n and the circu mstan radha that exist to justi fy the autho rizat ion of the emerg ency use of in vitro diagn ostic tests for the detec tion of SARS- CoV-2 virus and/o r diagn osis of COVID -19 infec tion under secti on 564 (b) (1) of the Act. 11 U.S.C . 360bb b-3 (b) (1), unles s the autho rizat ion is termi nated or revok ed soone r. Not Available [facility] (Lab) [address], [place], [address], 01/08/2020 23:40:38 01/07/20 20 01/07/2020 SARS CoV 2 RNA (COVI D-19) , QL, hydrant setter-P CR, respi rator y speci men covidcom5 [facility] is certi fied under CLIA- 88 as quali fied to perfo rm high compl exity testi ng. This testi ng was perfo rmed in the [facility] [place] [address] (CLIA Licen se #[id number], CAP #[id number], AU-ID #[id number]). Not Available [facility] (Lab) [address] [place], [address], 01/08/2020 23:40:38 01/07/20 20 01/07/2020 SARS CoV 2 RNA (COVI D-19) , QL, hydrant setter-P CR, respi rator y speci men covidcom6 Facts heet for healt hcare provi ders: https ://[employer] .gov/ media /1362 56/do wnloa d Facts heet for patie nts: https ://[employer] .gov/ media /1362 57/do wnloa d Not Available [facility] (Lab) [address], [place], [address], 01/08/2020 23:40:38 01/21/20 20 01/21/2020 SARS CoV 2 RNA (COVI D-19) , QL, hydrant setter-P CR, respi rator y speci men sars - cov - 2 PCR NEGATI VE mL Not Available [facility] (Lab) [address] [facility], [place], [address], 01/24/2020 22:53:33 01/21/20 20 01/21/2020 SARS CoV 2 RNA (COVI D-19) , QL, hydrant setter-P CR, respi rator y speci men covidcom1 COMME NTS: This assay is desig mitzy to detec t the RdRp and N genes of SARS- CoV-2 using nucle ic acid ampli ficat ion. A negat robert resul t does not precl ude the possi bilit y of 2019- nCoV infec tion since the adequ acy of sampl e colle ction and/o r low viral burde n may resul t in the prese nce of viral nucle ic acids level s below the chet tical sensi tivit y of this test metho d. Not Available [facility] (Lab) [address] [place], [address], 01/24/2020 22:53:33 01/21/20 20 01/21/2020 SARS CoV 2 RNA (COVI D-19) , QL, hydrant setter-P CR, respi rator y speci men covidcom2 Posit robert resul ts are indic ative of the prese nce of SARS- CoV-2 RNA and do not rule out bacte rial infec tion or co-in fecti on with other virus es. Not Available [facility] (Lab) [address] [facility], [place], [address], 01/24/2020 22:53:33 01/21/20 20 01/21/2020 SARS CoV 2 RNA (COVI D-19) , QL, hydrant setter-P CR, respi rator y speci men covidcom3 Test resul ts shoul d be used along with other clini wang obser vatio ns, patie nt histo ry, epide miolo gical infor matio n and labor atory data in magdain g the diagn osis. Not Available [facility] (Lab) [address] [place], [address], 01/24/2020 22:53:33 01/21/2001/21/2020 SARS CoV 2 RNA (COVI D-19) , QL, hydrant setter-P CR, respi rator y speci men covidcom4 This test has recei ami FDA Emerg ency Use Autho rizat ion and has been verif ied by [facility] . This test is only autho rized for the durat ion of the decla ratio n and the circu mstan radha that exist to justi fy the autho rizat ion of the emerg ency use of in vitro diagn ostic tests for the detec tion of SARS- CoV-2 virus and/o r diagn osis of COVID -19 infec tion under secti on 564 (b) (1) of the Act. 11 U.S.C . 360bb b-3 (b) (1), unles s the autho blu richards is termi nated or revok ed soone christelle. Not Available [facility] (Lab) [address] [place], [address], 01/24/2020 22:53:33 01/21/20 20 01/21/2020 SARS CoV 2 RNA (COVI D-19) , QL, hydrant setter-P CR, respi rator y speci men covidcom5 [facility] is certi fied under CLIA- 88 as quali fied to perfo rm high compl exity testi ng. This testi ng was perfo rmed in the [facility] [place] [address] (CLIA Licen se #[id number], CAP #[id number], AU-ID #[id number]). Not Available [facility] (Lab) [address] [place], [address], 01/24/2020 22:53:33 01/21/20 20 01/21/2020 SARS CoV 2 RNA (COVI D-19) , QL, hydrant setter-P CR, respi rator y speci men covidcom6 Facts heet for healt hcare provi ders: https ://ww w.fda .gov/ media /1362 56/do wnloa d Facts heet for patie nts: https ://ww w.fda .gov/ media /1362 57/do wnloa d Not Available [facility] (Lab) [address] [place], [address], 01/24/2020 22:53:33 01/28/20 20 01/28/2020 SARS CoV 2 RNA (COVI D-19) , QL, hydrant setter-P CR, respi rator y speci men covid-19 negati ve Not Available [facility] (Lab) [address] [place], [address], 01/29/2020 20:14:05 02/04/20 20 02/04/2020 SARS CoV 2 RNA (COVI D-19) , QL, hydrant setter-P CR, respi rator y speci men sars - cov - 2 PCR NEGATI VE mL Not Available [facility] (Lab) [address] [facility], [place], [address], 02/07/2020 18:55:51 02/04/20 20 02/04/2020 SARS CoV 2 RNA (COVI D-19) , QL, hydrant setter-P CR, respi rator y speci men covidcom1 COMME NTS: This assay is desig mitzy to detec t the RdRp and N genes of SARS- CoV-2 using nucle ic acid ampli ficat ion. A negat robert resul t does not precl ude the possi bilit y of 2019- nCoV infec tion since the adequ acy of sampl e colle ction and/o r low viral burde n may resul t in the prese nce of viral nucle ic acids level s below the chet tical sensi tivit y of this test metho d. Not Available [facility] (Lab) [address] [facility], [place], [address], 02/07/2020 18:55:51 02/04/20 20 02/04/2020 SARS CoV 2 RNA (COVI D-19) , QL, hydrant setter-P CR, respi rator y speci men covidcom2 Posit robert resul ts are indic ative of the prese nce of SARS- CoV-2 RNA and do not rule out bacte rial infec tion or co-in fecti on with other virus es. Not Available [facility] (Lab) [address] [facility], [place], [address], 02/07/2020 18:55:51 02/04/20 20 02/04/2020 SARS CoV 2 RNA (COVI D-19) , QL, hydrant setter-P CR, respi rator y speci men covidcom3 Test resul ts shoul d be used along with other clini wang obser vatio ns, patie nt histo ry, epide miolo gical infor matio n and labor atory data in alexi g the diagn osis. Not Available [facility] (Lab) [address] [place], [address], 02/07/2020 18:55:51 02/04/20 20 02/04/2020 SARS CoV 2 RNA (COVI D-19) , QL, hydrant setter-P CR, respi rator y speci men covidcom4 This test has recei ami FDA Emerg ency Use Autho rizat ion and has been [facility]if [facility] . This test is only autho rized for the durat ion of the decla ratio n and the circu mstan radha that exist to justi fy the autho rizat ion of the emerg ency use of in vitro diagn ostic tests for the detec tion of SARS- CoV-2 virus and/o r diagn osis of COVID -19 infec tion under secti on 564 (b) (1) of the Act. 11 U.S.C . 360bb b-3 (b) (1), unles s the autho rizat ion is termi nated or revok ed soone r. Not Available [facility] (Lab) [address] [facility], [place], [address], 02/07/2020 18:55:51 02/04/20 20 02/04/2020 SARS CoV 2 RNA (COVI D-19) , QL, hydrant setter-P CR, respi rator y speci men covidcom5 [facility] is certi fied under CLIA- 88 as quali fied to perfo rm high compl exity testi ng. This testi ng was perfo rmed in the [facility] [place] [address] (CLIA Licen se #[id number], CAP #[id number], AU-ID #[id number]). Not Available [facility] (Lab) [address] [place], [address], 02/07/2020 18:55:51 02/04/20 20 02/04/2020 SARS CoV 2 RNA (COVI D-19) , QL, hydrant setter-P CR, respi rator y speci men covidcom6 Facts heet for healt hcare provi ders: https ://[employer] .gov/ media /136 56/do wnloa d Facts heet for patie nts: https ://[employer] .gov/ media /1369 57/do wnloa d Not Available [facility] ([facility]) [address] [place], [address], 02/07/2020 18:55:51 Result Notes None recorded. Problems No Known Problems Procedures Surgical History Date Name Laterality Status Provider Name and Address Organization Details Recorded Time 6 Tubal Ligation completed Paulette Mathews [place] - [facility] 09/17/2016 11:09:36 Imaging Results None recorded. Procedure Notes None recorded. Medical Equipment None Reported. Allergies Allergen ID Allergen Name Allergen Category Reaction Reaction Severity Criticality Documentation Date Start Date Code Code System Note Provider Name and Address Organization Details Recorded Time 28217 Product containin g penicilli n (product) medicatio n hives Not available Not available 09/17/2016 74308 8001 SNOMED Not Available Not Available Not Available 99578 Biaxin medicatio n vomiting Not available Not available 09/17/2016 01462 9 RxNorm Not Available Not Available Not Available Medications Name Sig Start Date Stop Date Status Note LastModified by Organization Details LastModified Time Ortho Tri-Cyclen LO (28) 0.18 mg/0.215 mg/0.25 mg-25 mcg tablet Take 1 tablet every day by oral route as directed . 017 active Not Available Not Available Not Avai lable Sprintec (28) 0.25 mg-35 mcg tablet Take 1 tablet every day by oral route as directed . 017 active Not Available Not Available Not Avai lable Prilosec active Not Available Not Avai lable Not Available Vitals None Recorded Social History None recorded. Functional Status None recorded. Mental Status None recorded. Family History Relationship Description Onset Age of this Age Resolved Age Notes LastModified by Organization Details LastModified Time Father Hypertensive disorder [email or web address] Not available 11:09:20 Medical History Condition Response Anxiety Disorder Y Depression Y Gynecological History Statement/Question Response Flow Date of LMP 10/15/2016 Menses Monthly N Duration of Flow (days) 6 Age at Menarche 9 Age at First Child 18 LMP Definite Obstetrics History GPAL:G 4 P 0 0 0 4 Type Value Living 4 Total 4 Past Encounters Encounter ID Performer Location Encounter Start Date Encounter Closed Date Diagnosis/Indication Diagnosis SNOMED-CT Code Diagnosis ICD10 Code Diagnosis Note [id number] HITESH Chapman [facility] ([facility]) [address] [place] [address] 09/17/2016 10:53:10 10/04/2016 15:05:30 Gynecologic examination 23963639 Z01.419 Irregular intermenstrual bleeding 32643020 N92.1 [id number] ALESSANDRO Chapman ([place] [address]) [address] [place] [address] 10/19/2016 09:10:33 10/20/2016 09:01:14 Cyst of ovary 79240709 N83.868 [id number] Tamie Pere[facility] [place] [address] [place] [phone] 01/07/2020 12:34:51 01/08/2020 15:12:13 Exposure to SARS-CoV-2 114596369 Z20.725 [id number] BONITA SWENSON NP [facility] [place] [address] [place] [phone] 01/18/2020 10:09:04 01/21/2020 10:42:03 Exposure to SARS-CoV-2 069205186 Z20.426 [id number] JUANITA Olivares NP [facility] [place] [address] [place] [phone] 01/21/2020 12:59:20 01/22/2020 07:51:41 Exposure to SARS-CoV-2 795547193 Z20.564 [id number] JUANITA Olivares NP [facility] [place] [address] [place] [id number] 01/28/2020 09:39:44 01/29/2020 10:44:28 Exposure to SARS-CoV-2 346074552 Z20.576 [id number] BONITA SWENSON NP Jose marshall [address] [place] [address] 02/04/2020 12:29:24 02/05/2020 07:38:41 Viral screening 688727272 Z11.59 Health Concerns Section Related Observation LastModified by Organization Detai ls LastModified Time None Recorded Concern Status LastModified by Organization Details LastModified Time None Recorded Advance Directives Directive None Recorded Payers Encounter Date Sequence Insurance Name Policy Number Policy Rodriguez Covered Member ID Rodriguez Member ID Guarantor Name 01/07/2020 1 [employer] ([employer] [id number] Travon Reyna [id number] Yesenia Stone 01/18/2020 1 [employer] [id number] Travon Reyna [id number] Yesenia Stone 01/21/2020 1 [employer] [id number] Travon Reyna [id number] Yesenia Stone 01/28/2020 1 [employer] [id number] Travon Reyna [id number] Yesenia Stone 02/04/2020 1 [employer] [id number] Travon Reyna [id number] Yesenia Stone Notes Date Note Type Note Provider Name and Address Organization Details Recorded Time 01/07/2020 text/html COVID ScreeningReported bypatient.Onset/Durati on of fever:no fever Associated Symptoms:no cough; no shortness of breathNotes:No symptoms but positive exposure Tamie bass [place] - [facility] 01/07/2020 15:07:24 01/18/2020 text/html COVID ScreeningReported bypatient.Onset/Durati on of fever:no fever Associated Symptoms:no cough; no shortness of breathNotes:No symptoms but positive exposureCOVID-19 Symptoms November 2019Reported bypatient.Contacts and Exposurehealthcare-ass ociated exposure; patient is healthcare personnel BONITA SWENSON NP Attn: Accounting,[address] [place], [address], [facility] - [facility] 01/18/2020 14:25:53 01/21/2020 text/html COVID ScreeningReported bypatient.Onset/Durati on of fever:no fever Associated Symptoms:no cough; no shortness of breathCOVID-19 Symptoms November 2019Reported bypatient.COVID-19 Signs and Symptomscough resolved; fever resolved; shortness of breath resolved; chills resolved; repeated shaking with chills resolved; muscle pain resolved; headache resolved; sore throat resolved; loss of taste or smell resolved; vomiting or diarrhea resolved; fatigue resolved; anorexia resolved Contacts and Exposureclose contact with a confirmed or suspected case of COVID-19; patient is healthcare personnel Associated Symptoms:no sputum production; no wheezing; no runny nose; no vomiting; no diarrhea; no body aches; no nausea; no change in mental status; no hypotension; no tachycardia 39 yo female ,spoke via phone with C/O, denies having any COVID-19 symptoms. 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 JUANITA Olivares NP Attn: Accounting, [place], [address] 01/21/2020 14:31:03 01/28/2020 text/html COVID ScreeningReported bypatient.Onset/Durati on of fever:no fever Associated Symptoms:no cough; no shortness of breathCOVID-19 Symptoms November 2019Reported bypatient.COVID-19 Signs and Symptomscough resolved; fever resolved; shortness of breath resolved; chills resolved; repeated shaking with chills resolved; muscle pain resolved; headache resolved; sore throat resolved; loss of taste or smell resolved; vomiting or diarrhea resolved; fatigue resolved; anorexia resolved Contacts and Exposureclose contact with a confirmed or suspected case of COVID-19; patient is healthcare personnel Associated Symptoms:no sputum production; no wheezing; no runny nose; no vomiting; no diarrhea; no body aches; no nausea; no change in mental status; no hypotension; no tachycardia 39 yo female ,spoke via phone with C/O, denies having any COVID-19 symptoms. 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 JUANITA Olivares NP Attn: Accounting, [place], [address], [facility] 01/28/2020 10:13:09 02/04/2020 text/html COVID ScreeningReported bypatient.Onset/Durati on of fever:no fever Associated Symptoms:no cough; no shortness of breathCOVID-19 Symptoms November 2019Reported bypatient.COVID-19 Signs and Symptomscough resolved; fever resolved; shortness of breath resolved; chills resolved; repeated shaking with chills resolved; muscle pain resolved; headache resolved; sore throat resolved; loss of taste or smell resolved; vomiting or diarrhea resolved; fatigue resolved; anorexia resolved Contacts and Exposureclose contact with a confirmed or suspected case of COVID-19; patient is healthcare personnel Associated Symptoms:no sputum production; no wheezing; no runny nose; no vomiting; no diarrhea; no body aches; no nausea; no change in mental status; no hypotension; no tachycardia 39 yo female ,spoke via phone with C/O, denies having any COVID-19 symptoms. 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 BONITA SWENSON NP Attn: Accounting,[address] [facility], [place], [address], [facility] 02/04/2020 16:08:23 OBGyn Episode No OBEpisode recorded.
[2024-09-06 14:37] LABS: Alanine Aminotransferase 13 U/L (6-35); Albumin Level 4.2 g/dL (3.5-5.1); Alkaline Phosphatase 103 U/L (38-126); Anion Gap 10 mmol/L (4-12); Aspartate Amino Transferase 21 U/L (14-36); Bilirubin,Total 0.3 mg/dL (0.2-1.3); Blood Urea Nitrogen 12 mg/dL (7-17); Calcium 9.2 mg/dL (8.4-10.2); Carbon Dioxide 26 mmol/L (22-30); Chloride 101 mmol/L (98-107); Estimated Glomerular Filt Rate > 60; Glucose 87 mg/dL (65-110); Sodium 137 mmol/L (137-145)
== END 2024-09-06 11:38 | disposition home or self-care (01) ==
LOC: ANHGOSHLAB 11:38
PROVIDERS: PCP Family Medicine; Visit Provider Nurse Practitioner Family
DX: Z00.00 Encounter for general adult medical examination without abnormal findings (principal); L65.9 Nonscarring hair loss, unspecified
CPT/HCPCS: 36415; 80053; 84443; 85025